=== PATIENT | female | born 1955 | race Two or more races ===

== ENCOUNTER 2024-11-28 11:31 | Inpatient (IN) | payer OTHER ==
[~2024-11-28] VITALS: Ht 170.2 cm; Wt 56.9 kg
--- NOTE | 2024-11-28 11:41 | ED.PDOC ---
History of Present Illness HPI Comments 69 y.o female with PMHx of MS and HTN, presents to the ED via EMS for an evaluation of generalized weakness. Per EMS, spouse of scene reported patient's decrease in food intake due to dysphagia x a couple of days and also stated increased forgetfulness. Patient presents to the ED asymptomatic, is able to answer some yes and no questions but does not recall full past medical history. EMS administrated 500mL NS IV on scene due to a BP of 75/56 and also gave Zofran due to nausea/vomiting which has resolved now. Patient had a BS of 206 prior to arrival. Time Seen by MD: 11:28 Reviewed Notes: Nurses Notes, Nuclear Engineer Notes, Medications, Allergies Allergies: Coded Allergies: NO KNOWN ALLERGIES (Unverified , 11/28/24) Information Source: Emergency Med Personnel Mode of Arrival: EMS Severity: Moderate Timing: Days Duration: Since onset Past Medical History PAST MEDICAL HISTORY: HTN Past Medical History (Other): MS Surgical History: Unknown, Unobtainable, Pt Confused GM VIDEO History: Unknown, Unobtainable, Pt Confused Family History Family History: Unknown, Pt Confused Social History Smoker: Pt Confused Alcohol: Pt Confused Drugs: Pt Confused Lives In: Pt Confused Constitutional: reports: weakness; denies: chills, diaphoresis, fatigue, fever, malaise, sweats, others EENTM: denies: blurred vision, double vision, ear bleeding, ear discharge, ear drainage, ear pain, ear ringing, eye pain, eye redness, hearing loss, mouth pain, mouth swelling, nasal discharge, nose bleeding, nose congestion, nose pain, photophobia, tearing, throat pain, throat swelling, voice changes, others Respiratory: denies: cough, hemoptysis, orthopnea, SOB at rest, shortness of breath, SOB with excertion, stridor, wheezing, others Cardiovascular: denies: chest pain, dizzy spells, diaphoresis, Dyspnea on exertion, edema, irregular heart beat, left arm pain, lightheadedness, palpitations, PND, syncope, others Gastrointestinal: reports: dysphagia Genitourinary: denies: abnormal vagina bleeding, burning, dyspareunia, dysuria, flank pain, frequency, hematuria, incontinence, pain, , vagina discharge, urgency, others Neurological: denies: dizziness, fainting, headache, left sided numbness, left sided weakness, numbness, paresthesia, pre-existing deficit, right sided numbness, right sided weakness, seizure, speech problems, tingling, tremors, weakness, others Musculoskeletal: denies: back pain, gout, joint pain, joint swelling, muscle pain, muscle stiffness, neck pain, others Integumetry: denies: bruises, change in color, change in hair/nails, dryness, laceration, lesions, lumps, rash, wounds, others Allergic/Immunocompromised: denies: Difficulty Healing, Frequent Infections, Hives, Itching, others Hematologic/Lymphatic: denies: anemia, blood clots, easy bleeding, easy bruising, swollen glands, others Endocrine: denies: excessive hunger, excessive sweating, excessive thirst, excessive urination, flushing, intolerance to cold, intolerance to heat, unexplained weight gain, unexplained weight loss, others Psychiatric: denies: anxiety, bipolar disorder, depression, hopeless, panic disorder, schizophrenia, sleepless, suicidal, others Unable to Obtain due to: Other (Patient denies any symptoms but is responding " i do not know" to most questions ) Physical Exam General Appearance: Moderate Distress, Thin HEENT: Pale [place]junt[place]ae (L), Pale Conjuntivae (R), Pharynx Normal, TMs Normal Neck: Full Range of Motion, Non-Tender, Normal, Normal Inspection Respiratory: Chest Non-Tender, Lungs Clear, No Accessory Muscle Use, No Respiratory Distress, Normal Breath Sounds Cardiovascular: No Edema, No JVD, No Murmur, No Gallop, Normal Peripheral Pulses, Regular Rate/Rhythm Breast Exam: Deferred Gastrointestinal: No Organomegaly, Non Tender, No Pulsatile Mass, Normal Bowel Sounds, Soft Genitalia: Deferred Pelvic: Deferred Rectal: Deferred Extremities: No calf tenderness, Normal capillary refill, Normal inspection, Normal range of motion, Non-tender, No pedal edema Musculoskeletal : Apperance: Normal Neurologic: practice manager II-XII nml as Tested, Motor Weakness, No Sensory Deficits, Other (Flat affect) Cerebellar Function: Unable to Test Reflexes: Normal Skin: Dry, Normal Color, Warm Lymphatic: No Adenopathy Was a procedure done? Was a procedure done?: No EKG EKG : Pulse Rate (adult): 83 [place]: RAD Cardiac Rhythm: NSR Differential Dx Considerations may include: Dehydration, Failure to thrive X-Ray, Labs, Meds, VS Vital Signs Date Time Temp Pulse Resp B/P (MAP) Pulse Ox O2 Delivery O2 Flow Rate FiO2 11/28/24 12:00 84 11/28/24 11:57 81 16 99 Nasal Cannula* 4 36 11/28/24 11:57 97.8 81 16 99/62 (74) 99 97.8 11/28/24 11:41 83 11/28/24 11:37 83 11/28/24 11:32 97.8 108 18 76/39 (51) 98 97.8 Lab Test 11/28/24 12:41 11/28/24 11:51 11/28/24 10:00 Range/Units Urine Color Pending Urine Clarity Pending Urine pH Pending Urine Specific [place] Pending Urine Protein Pending Urine Ketones Pending Urine Blood Pending Urine Nitrite Pending Urine Bilirubin Pending Urine Urobilinogen Pending Urine Leukocyte Esterase Pending Urine RBC Pending Urine Microscopic WBC Pending Urine Squamous Epithelial Cells Pending Urine Bacteria Pending Urine Glucose Pending White Blood Count 20.6 H 4.4-10.8 10^3/uL Red Blood Count 4.40 4.0-5.20 10^6/uL Hemoglobin 13.2 12.2-16.2 g/dL Hematocrit 38.8 36.0-46.0 % Mean Corpuscular Volume 88.3 80.0-100.0 fL Mean Corpuscular Hemoglobin 30.0 28.0-32.0 pg Mean Corpuscular Hemoglobin Concent 34.0 32.0-36.0 g/dL Red Cell Distribution Width 15.2 H 11.8-14.3 % Platelet Count 348 140-450 10^3/uL Mean Platelet Volume 8.5 6.9-10.8 fL Neutrophils (%) (Auto) 93.9 H 37.0-80.0 % Lymphocytes (%) (Auto) 2.1 L 10.0-50.0 % Monocytes (%) (Auto) 3.9 0.0-12.0 % Eosinophils (%) (Auto) 0.0 0.0-7.0 % Basophils (%) (Auto) 0.1 0.0-2.0 % Neutrophils # (Auto) 19.3 H 1.6-8.6 10 ^3/uL Lymphocytes # (Auto) 0.4 0.4-5.4 10 ^3/uL Monocytes # (Auto) 0.8 0-1.3 10 ^3/uL Eosinophils # (Auto) 0 0-0.8 10 ^3/uL Basophils # (Auto) 0 0-0.2 10 ^3/uL Nucleated Red Blood Cells 0.0 % Sodium Level 144 136-145 mmol/L Potassium Level 2.3 *L 3.5-5.1 mmol/L Chloride Level 105 98-107 mmol/L Carbon Dioxide Level 18 L 20-31 mmol/L Anion Gap 21 H 5-15 Blood Urea Nitrogen 102 *H 9-23 mg/dL Creatinine 3.71 H 0.550-1.02 mg/dL Glomerular Filtration Rate Calc 13 >90 mL/min BUN/Creatinine Ratio 27.5 H 10.0-20.0 Serum Glucose 152 H 74-106 mg/dL Calcium Level 9.6 8.7-10.4 mg/dL SARS-CoV-2 Antigen (Rapid) Pending Current Medications Medications (Trade) Dose Ordered Sig/Jenise Route Start Time Stop Time Status Last Admin Potassium Chloride 50 ml @ 25 mls/hr ONCE ONCE IV 11/28/24 13:00 11/28/24 14:59 11/28/24 12:57 Sodium Chloride 100 ml @ 50 mls/hr Q2H ONCE IV 11/28/24 13:00 11/28/24 14:59 11/28/24 13:02 Whenever chest x-ray is negative The patient's CBC shows an elevated white blood cell count of 20.6 The chemistry panel shows a BUN of 102 and a creatinine of 3.71 The patient was potassium is 2.3 The patient was unable to take a lot of fluids at this time The patient's CO2 level is 18 and the anion gap is elevated at 21 The patient is admitted at this time We will continue giving the patient normal saline for the dehydration We did order a Ellison catheter The CBC is pending Images Reviewed?: Images reviewed and evaluated by me Time of 1ST Reevaluation: 11:35 Reevaluation 1ST: Unchanged Patient Education/Counseling: Other Family Education/Counseling: Diagnosis, Treatment, Prognosis Departure 1 Departure Time of Disposition: 13:21 Impression: Primary Impression: Generalized weakness Additional Impressions: Dehydration Hypokalemia Uremia Increased anion gap metabolic acidosis Disposition: ADMITTED INPATIENT Admit to: Tele Condition: Fair Critical Care Note Critical Care Time?: Yes (45 min-critical care time only) Stability Stability form required: Yes Unstable for transfer: Telemetry monitoring (Telemetry monitoring required), ED Physician Assesment (Clinical assesment) I personally scribed for MILLIE HEREDIA MD ([email or web address]) on 11/28/24 at 11:41. Electronically submitted by Lillian Negrete ([facility]). MILLIE HEREDIA MD Nov 28, 2024 11:41
[2024-11-28 11:57] VITALS: PULSE 81; RESP 16; O2SAT 99
[2024-11-28 12:07] LABS: Basophils # (auto) 0 10 ^3/uL (0-0.2); Basophils % (auto) 0.1 % (0.0-2.0); Eosinophils # (auto) 0 10 ^3/uL (0-0.8); Hematocrit 38.8 % (36.0-46.0); Hemoglobin 13.2 g/dL (12.2-16.2); Lymphocytes # (auto) 0.4 10 ^3/uL (0.4-5.4); Lymphocytes % (auto) 2.1 % (10.0-50.0); Mean Corpuscular Volume 88.3 fL (80.0-100.0); Monocytes # (auto) 0.8 10 ^3/uL (0-1.3); Monocytes % (auto) 3.9 % (0.0-12.0); Neutrophils # (auto) 19.3 10 ^3/uL (1.6-8.6); Neutrophils % (auto) 93.9 % (37.0-80.0); Platelet Count (auto) 348 10^3/uL (140-450); Red Cell Distribution Width 15.2 % (11.8-14.3); White Blood Cell 20.6 10^3/uL (4.4-10.8)
[2024-11-28 12:16] LABS: Chloride 105 mmol/L (98-107); Sodium 144 mmol/L (136-145)
[2024-11-28 12:17] LABS: Anion Gap 21 (5-15); Calcium 9.6 mg/dL (8.7-10.4)
[2024-11-28 12:19] LABS: Carbon Dioxide 18 mmol/L (20-31)
[2024-11-28 12:20] LABS: Potassium 2.3 mmol/L (3.5-5.1)
[2024-11-28 12:22] LABS: BUN/Creatinine Ratio 27.5 (10.0-20.0); Glucose 152 mg/dL (74-106)
[2024-11-28 12:23] LABS: Blood Urea Nitrogen 102 mg/dL (9-23)
[2024-11-28] MEDS ORDERED: POTASSIUM CHL 20MEQ/100ML 100 ML IV ONE (12:30)
--- NOTE | 2024-11-28 12:40 | DVH ---
XY CHEST PORTABLE, HISTORY: cough COMPARISON: None None TECHNICAL DATA: 1 view of the chest was obtained. FINDINGS: Lines and tubes: None Cardiomediastinal silhouette: normal Pulmonary vasculature: normal Lung expansion: normal Lung airspace: normal Lung interstitium: normal Pleura: normal Pneumothorax: no Bones: Unremarkable Other: no IMPRESSION: No acute intrathoracic abnormality.
[2024-11-28 12:49] LABS: Urine Bacteria None Seen /hpf (None Seen)
[2024-11-28] MEDS: POTASSIUM CHL 20MEQ/50ML 50 ML IV ONE (12:57)
[2024-11-28] MEDS: SODIUM CHL 0.9% 100 ML IV ONE (13:02)
[2024-11-28 13:22] LABS: COVID19 ANTIGEN SOFIA FIA NEGATIVE (NEGATIVE)
[2024-11-28 13:22] LABS: Urine Blood 2+ /uL (Negative); Urine Clarity Clear (Clear); Urine Color Yellow (Yellow); Urine Protein, UAD 1+ (Negative); Urine Specific Gravity 1.017 (1.001-1.035); Urine Squamous Epithelial Cell FEW /hpf (<5); Urine Urobilinogen Normal (Negative); Urine WBC 23 /HPF (0-5); Urine pH 5.5 (5.0-9.0)
[2024-11-28] MEDS ORDERED: IPRATROPIUM BROM 0.5 MG/2.5ML INH SOL NEB PRN (20:45)
[2024-11-28 21:31] LABS: Base Excess -5.6 mmol/L (-2.0-3.0)
[2024-11-28 21:52] LABS: Basophils # (auto) 0 10 ^3/uL (0-0.2); Basophils % (auto) 0.2 % (0.0-2.0); Eosinophils # (auto) 0 10 ^3/uL (0-0.8); Hematocrit 39.2 % (36.0-46.0); Hemoglobin 13.1 g/dL (12.2-16.2); Lymphocytes # (auto) 0.5 10 ^3/uL (0.4-5.4); Lymphocytes % (auto) 2.6 % (10.0-50.0); Mean Corpuscular Hemoglobin 29.6 pg (28.0-32.0); Mean Corpuscular Hgb Conc. 33.4 g/dL (32.0-36.0); Mean Corpuscular Volume 88.6 fL (80.0-100.0); Monocytes # (auto) 0.9 10 ^3/uL (0-1.3); Monocytes % (auto) 5.4 % (0.0-12.0); Neutrophils % (auto) 91.8 % (37.0-80.0); Platelet Count (auto) 311 10^3/uL (140-450); Red Blood Cells 4.42 10^6/uL (4.0-5.20); Red Cell Distribution Width 15.3 % (11.8-14.3); White Blood Cell 17.4 10^3/uL (4.4-10.8)
[2024-11-28 22:00] VITALS: BP 99/62; PULSE 81; RESP 20; TEMP 97.8; O2SAT 99
[2024-11-28 22:00] LABS: Albumin 4.4 g/dL (3.2-4.8); Alkaline Phosphatase 109 U/L (46-116); Anion Gap 18 (5-15); Aspartate Aminotransferase 31 U/L (13-40); BUN/Creatinine Ratio 28.4 (10.0-20.0); Calcium 9.7 mg/dL (8.7-10.4); Total Protein 7.7 g/dL (5.7-8.2)
[2024-11-28 22:08] LABS: Carbon Dioxide 19 mmol/L (20-31); Chloride 109 mmol/L (98-107); Glucose 139 mg/dL (74-106); Sodium 146 mmol/L (136-145)
[2024-11-28 22:09] LABS: Alanine Aminotransferase 9 U/L (7-40); Bilirubin, Total 0.2 mg/dL (0.2-1.0)
[2024-11-28 22:11] LABS: Potassium 2.4 mmol/L (3.5-5.1)
[2024-11-28 22:12] VITALS: O2SAT 99
[2024-11-28 22:12] LABS: Blood Urea Nitrogen 90 mg/dL (9-23)
--- NOTE | 2024-11-28 22:15 | DVH ---
EXAM: CT HEAD WITHOUT CONTRAST INDICATION: slurring of speach, rule out stroke TECHNIQUE: CT of the head without intravenous contrast. Radiation Dose Information: CT Dose: CTDI volume is 53.84 mGy. Dose-length product is 1904.99 mGy*cm The dose indicators for CT are the volume Computed Tomography (CT) Dose Index (CTDIvol) and the Dose Length Product (DLP), and are measured in units of mGy and mGy-cm, respectively. These indicators are not patient dose, but values generated from the CT scanner acquisition factors. The report includes radiation exposure data for exposures received during this examination. COMPARISON: None FINDINGS: There is no evidence of acute intracranial hemorrhage, extra-axial collection, mass effect, midline s hift, herniation or hydrocephalus. Idiopathic bilateral basal ganglion calcifications. The ventricles, sulci and cisterns are age appropriate. The rae-white differentiation is intact. Patchy periventricular and subcortical white matter hypoattenuation is nonspecific but may be related to small vessel ischemic disease. The visualized paranasal sinuses and mastoid air cells are clear. The surrounding soft tissues and osseous structures are unremarkable. IMPRESSION: 1. No acute intracranial hemorrhage 2. No CT findings of territorial ischemia. CRITICAL FINDINGS Critical Result: Stroke Alert NEGATIVE Findings discussed with Gloria STEVENS , at 11/28/2024 10:06 PM, and acknowledged receipt and understanding of the findings. ..
[2024-11-28] MEDS: PIPERACILLIN-TAZOB 3.375GM 100 ML IV ONE (22:55)
[2024-11-28] MEDS: SODIUM CHLORIDE 0.9% 1,000 ML IV ONE (22:56)
[2024-11-28 23:11] VITALS: BP 102/60; PULSE 68; RESP 20; TEMP 97.5; O2SAT 93
[2024-11-28] MEDS ORDERED: POTASSIUM CHL 20MEQ/100ML 100 ML IV SCH (23:30)
[2024-11-29] VITALS (10 sets, daily range): BP systolic 92–108; BP diastolic 52–77; PULSE 73–144; RESP 17–18; TEMP 97.3–97.8; O2SAT 90–99
[2024-11-29] MEDS: POTASSIUM CHL 20MEQ/50ML 50 ML IV SCH ×3 (00:24→21:11)
--- NOTE | 2024-11-29 01:59 | DVHHPRES ---
History of Present Illness Resident Creating Document: NATHANIEL EL RESIDENT History of Present Illness 69-year-old female with past medical history of hypertension, multiple sclerosis past surgical history of surgery for hip fracture presented with complaints of generalized weakness associated with dysphagia, forgetfulness and decreased food intake for last two weeks. Patient is currently confused alert and oriented x1, history was taken from at bedside who is next of kin. As per , patient was admitted for surgery for a fracture almost 1-2 months ago. One month ago patient patient was started having difficulty walking, which the attributed both to a fracture and motor weakness because of multiple sclerosis. also mentioned patient had slurring of speech, that has been worsening for last one month and patient is on November 24 take any food, was able to take initially liquid food, with stroke but later started choking. Was spent mentioned patient had altered level of consciousness and dry mouth for last two weeks. He also mentioned patient had issues with passing urine Patient's neurologist is Dr. Romero, but patient is not following for a very long time and not taking any medication for multiple sclerosis Past medical history Hypertension Multiple sclerosis Surgical history Surgery for hip fracture Medication history Patient does not take any medication Social history Patient lives with the , denies smoking, alcohol, marijuana or any other recreational drug intake Allergic history No known allergies Review of Systems Review of Systems Could not be done as patient is confused Allergies: Coded Allergies: NO KNOWN ALLERGIES (Unverified , 11/28/24) Medications Current Medications Medications Dose Ordered Sig/Jenise Route Start Time Stop Time Status Last Admin Dose Admin Ipratropium [place] 0.5 mg Q4HPRN PRN NEB 11/28/24 20:45 Potassium Chloride 50 ml @ 25 mls/hr Q2H IV 11/28/24 23:45 11/29/24 03:44 11/29/24 00:24 25 MLS/HR Exam Vital Signs Vital Signs Date Time Temp Pulse Resp B/P (MAP) Pulse Ox O2 Delivery O2 Flow Rate FiO2 11/28/24 23:11 97.5 68 20 102/60 (74) 93 97.5 11/28/24 22:12 Nasal Cannula* 4 36 Exam Examination Does not follow commands and is confused General Appearance: Confused HEENT: Dry mouth and tongue Respiratory: Clear to auscultation, Normal air movement Cardiovascular: Regular rate, Normal S1, Normal S2 Abdominal: Normal bowel sounds Extremities: No cyanosis, No edema, Normal pulses, No tenderness/swelling Skin: No rashes, No breakdown Neuro: motor deficit on both legs Labs/Xrays Labs Test 11/28/24 21:31 11/28/24 21:22 11/28/24 12:41 11/28/24 10:00 Range/Units White Blood Count 17.4 H 4.4-10.8 10^3/uL Red Blood Count 4.42 4.0-5.20 10^6/uL Hemoglobin 13.1 12.2-16.2 g/dL Hematocrit 39.2 36.0-46.0 % Mean Corpuscular Volume 88.6 80.0-100.0 fL Mean Corpuscular Hemoglobin 29.6 28.0-32.0 pg Mean Corpuscular Hemoglobin Concent 33.4 32.0-36.0 g/dL Red Cell Distribution Width 15.3 H 11.8-14.3 % Platelet Count 311 140-450 10^3/uL Mean Platelet Volume 8.6 6.9-10.8 fL Neutrophils (%) (Auto) 91.8 H 37.0-80.0 % Lymphocytes (%) (Auto) 2.6 L 10.0-50.0 % Monocytes (%) (Auto) 5.4 0.0-12.0 % Eosinophils (%) (Auto) 0.0 0.0-7.0 % Basophils (%) (Auto) 0.2 0.0-2.0 % Neutrophils # (Auto) 16.0 H 1.6-8.6 10 ^3/uL Lymphocytes # (Auto) 0.5 0.4-5.4 10 ^3/uL Monocytes # (Auto) 0.9 0-1.3 10 ^3/uL Eosinophils # (Auto) 0 0-0.8 10 ^3/uL Basophils # (Auto) 0 0-0.2 10 ^3/uL Nucleated Red Blood Cells 0.0 % Sodium Level 146 H 136-145 mmol/L Potassium Level 2.4 *L 3.5-5.1 mmol/L Chloride Level 109 H 98-107 mmol/L Carbon Dioxide Level 19 L 20-31 mmol/L Anion Gap 18 H 5-15 Blood Urea Nitrogen 90 #*H 9-23 mg/dL Creatinine 3.17 H 0.550-1.02 mg/dL Glomerular Filtration Rate Calc 15 >90 mL/min BUN/Creatinine Ratio 28.4 H 10.0-20.0 Serum Glucose 139 H 74-106 mg/dL Lactic Acid Level 1.3 0.4-2.0 mmol/L Calcium Level 9.7 8.7-10.4 mg/dL Magnesium Level 3.1 H 1.6-2.6 mg/dL Total Bilirubin 0.2 0.2-1.0 mg/dL Aspartate Amino Transferase (AST) 31 13-40 U/L Alanine Aminotransferase (ALT) 9 7-40 U/L Alkaline Phosphatase 109 46-116 U/L Total Protein 7.7 5.7-8.2 g/dL Albumin 4.4 3.2-4.8 g/dL Thyroid Stimulating Hormone (TSH) 0.33 L 0.55-4.78 uIU/mL Blood Gas Specimen Type Arterial Blood Gas Sample Site Left radial Blood Gas Patient Temperature 37.0 Arterial Blood Date Drawn [id number] Arterial Blood pH 7.360 7.350-7.450 Arterial Blood Partial Pressure CO2 34.4 32.0-45.0 mmHg Arterial Blood Partial Pressure O2 94.2 83.0-108.0 mmHg Arterial Blood HCO3 19.0 L 21.0-28.0 mmol/L Arterial Blood Oxygen Saturation 96.8 94.0-98.0 % Arterial Blood Base Excess -5.6 L -2.0-3.0 mmol/L Arterial Blood Oxyhemoglobin 95.4 94.0-98.0 % Arterial Blood Carboxyhemoglobin 0.5 0.5-1.5 % Arterial Blood Methemoglobin 0.9 0.0-1.5 % [place] Test Yes Blood Gas Total Hemoglobin 13.40 12.0-16.0 g/dL Blood Gas Liter Flow 4.00 Blood Gas Modality Nasal cannula FiO2 % 36.0 Urine Color Yellow Yellow Urine Clarity Clear Clear Urine pH 5.5 5.0-9.0 Urine Specific [place] 1.017 1.001-1.035 Urine Protein 1+ H Negative Urine Ketones Negative Negative Urine Blood 2+ H Negative /uL Urine Nitrite Negative Negative Urine Bilirubin Negative Negative Urine Urobilinogen Normal Negative mg/dL Urine Leukocyte Esterase 2+ Negative /uL Urine RBC 1 0 - 4 /hpf Urine Microscopic WBC 23 H 0-5 /HPF Urine Squamous Epithelial Cells Few <5 /hpf Urine Bacteria None seen None Seen /hpf Urine Glucose Normal Normal mg/dL SARS-CoV-2 Antigen (Rapid) Negative NEGATIVE Assessment/Plan Assessment/Plan Assessment and plan # ALOC likely due to uremic encephalopathy/sepsis/UTI # dysarthria due to MS, rule out stroke head CT Vitamin B12, folate, TSH # SEPSIS LIKELY DUE TO UTI # urinary tract infection -IV FLUIDS IV ANTIBIOTICS (starting on IV Zosyn and IV doxycycline as patient was recently admitted, risk factors for MRSA and Pseudomonas URINE CULTURE LACTIC ACID BLOOD CULTURE AND CHEST X-RAY #HYPOTENSION, likely due to sepsis, resolved -IV fluids # ACUTE HYPOXIC RESPIRATORY FAILURE LIKELY DUE TO SEPSIS, later was on room air -ON 4L -CXRP-EMPHYSEMATOUS CHANGES -DUONEBS PRN #HYPOKALEMIA -replace with IV potassium -repeat BMP -magnesium levels #JJ over CKD, renal due to hypotension/sepsis -IV fluids -nephrology consult #Dysphagia/Dysarthria likely due to MS -head CT to rule out stroke -swallow evaluation, NPO till then #Multiple Sclerosis -pt is not on any home meds -consider neurology consult if concern for acute flare #hypertension -currently in shock at bedside, explained in details about patient GOALS of care discussed with the ,for >21 min, who is the next of kin, as per , patient would have wanted Full DNR, pt is currently confused, not having decision making capacity Nathaniel El PGY2 internal Medicine Case discussion with dr Ronald Locke discussed with: Spouse, Other My Orders Orders - NATHANIEL EL RESIDENT Procedure Category Date Status Time Admit ADMIT 11/28/24 Transmitted 20:45 Oxygen By Nasal RT 11/28/24 Transmitted Cannula 20:45 Stat Ekg For Chest MARLENY 11/28/24 In Process Pain 20:45 Notify Md Of Changes MARLENY 11/28/24 In Process From Base 20:45 Chemical Laboratory Technician For MARLENY 11/28/24 In Process 24 Hours 20:45 Emergency Dysrhythmia MARLENY 11/28/24 In Process Protocol 20:45 Rhythm Strips Once MARLENY 11/28/24 In Process Every Shift 20:[address] 11/28/24 Resulted 20:45 Urine Bacterial JAMES 11/28/24 Logged Culture 20:45 Blood Culture JAMES 11/28/24 In Process 20:45 Npo (Nothing By DIET 11/29/24 Transmitted Mouth) Diet Breakfast Ipratropium [place] PHA 11/28/24 In Process (Atrovent Medneb) 20:45 Abg W/ Co-Ox RT 11/28/24 Logged 20:45 Vitamin B12 LAB 11/28/24 In Process 20:45 Basic Metabolic Panel LAB 11/29/24 Logged 04:00 Potassium Chl PHA 11/28/24 In Process 20meq/50ml (Potassium 23:45 Date of Service: Nov 29, 2024 Billing Provider: NICOLAS MARTE MD Common Visit Codes: [id number] INP/OBS CARE (HIGH) NATHANIEL EL RESIDENT Nov 29, 2024 01:59 NICOLAS MARTE MD Dec 06, 2024 22:04
[2024-11-29] MEDS: DOXYCYCLINE 100MG/100ML 100 ML IV ONE (03:15)
[2024-11-29 06:29] LABS: Basophils # (auto) 0 10 ^3/uL (0-0.2); Basophils % (auto) 0.2 % (0.0-2.0); Eosinophils # (auto) 0 10 ^3/uL (0-0.8); Hematocrit 36.4 % (36.0-46.0); Hemoglobin 12.1 g/dL (12.2-16.2); Lymphocytes # (auto) 0.6 10 ^3/uL (0.4-5.4); Lymphocytes % (auto) 3.3 % (10.0-50.0); Mean Corpuscular Hemoglobin 29.8 pg (28.0-32.0); Mean Corpuscular Hgb Conc. 33.4 g/dL (32.0-36.0); Mean Corpuscular Volume 89.3 fL (80.0-100.0); Monocytes # (auto) 1.1 10 ^3/uL (0-1.3); Monocytes % (auto) 6.8 % (0.0-12.0); Neutrophils % (auto) 89.7 % (37.0-80.0); Platelet Count (auto) 302 10^3/uL (140-450); Red Blood Cells 4.08 10^6/uL (4.0-5.20); Red Cell Distribution Width 15.2 % (11.8-14.3); White Blood Cell 16.7 10^3/uL (4.4-10.8)
[2024-11-29 07:02] LABS: Anion Gap 17 (5-15)
[2024-11-29 07:03] LABS: Calcium 9.5 mg/dL (8.7-10.4)
[2024-11-29 07:07] LABS: Carbon Dioxide 20 mmol/L (20-31); Chloride 113 mmol/L (98-107); Potassium 2.9 mmol/L (3.5-5.1); Sodium 150 mmol/L (136-145)
[2024-11-29 07:08] LABS: BUN/Creatinine Ratio 36.6 (10.0-20.0)
[2024-11-29 07:18] LABS: Glucose 139 mg/dL (74-106)
[2024-11-29 07:20] LABS: Blood Urea Nitrogen 102 mg/dL (9-23)
[2024-11-29] MEDS: SODIUM CHL 0.9% 100 ML IV SCH ×2 (08:00→21:29)
--- NOTE | 2024-11-29 09:05 | DVHINCON2 ---
Date of service: Nov 29, [address] El Reason for Consultation Multiple sclerosis History of Present Illness Ms. Hilliard is a left-handed female with a history of hypertension, depression, stroke. She was admitted to the [facility] on 11/28/2024 with a chief company of altered mental status. At this time, she was awake, oriented to person place only, very pleasant, but is not able to provide history. The following information is obtained from her , I saw her previously in my office In the hospital, the patient was found to have dehydration/hypernatremia, acute kidney failure, urinary tract infection, metabolic acidosis, leukocytosis Around [id number], she developed some problems in the left side of her body, maybe weakness, she was seen in the [facility] and said to have stroke at first, later she was said to have MS after 2 MRI head wwo, and LP x2, she has a good recovery from the stroke. The patient was supposed to but does not not take Tecfidera [phone], Urinalysis, 11/28/2024: WBC: 23, urine leukocyte esterase: 2+ CBC, 11/28/2024: Compensated metabolic acidosis WBC/HB/PLT/MCV, 12/08/2024: 20.6/13.2/348/88.3. 11/29/2024: 16.7/12.1/302/89.3 Sodium, 11/28/2024: 144, 146, 11/29/2024: 150 Potassium, 11/28/2024: 2.3, 11/29/2024: 2.9 Anion gap, 11/29/2024: 17 BUN/CR, 11/28/2024: 102/3.71, 11/29/2024: 102/2.79 Glucose, 11/28/2024: 152 Liver function tests, 11/28/2024: Normal TSH, 11/28/2024: 0.33 Chest x-ray, 11/28/2024: No acute intrathoracic abnormality CT head, 11/28/2024: 1. No acute intracranial hemorrhage 2. No CT findings of territorial ischemia Past Medical History Hypertension, multiple sclerosis, depression Past Surgical History Appendectomy, tonsillectomy, ectopic , left hip surgery Family History: of family member G8 MOTHER Family History Stroke Social History She was tobacco smoke, but no history of alcohol or recreational substance abuse Allergies: Coded Allergies: NO KNOWN ALLERGIES (Unverified , 11/28/24) Home Meds As above, the other systems are negative Current Medications Current Medications Medications (Trade) Dose Ordered Sig/Jenise Route PRN Reason Start Time Stop Time Status Last Admin Ipratropium [place] (Atrovent Medneb) 0.5 mg Q4HPRN PRN NEB SHORTNESS OF BREATH 11/28/24 20:45 Potassium Chloride 100 ml @ 50 mls/hr Q2H IV 11/28/24 23:30 11/28/24 23:55 DC Potassium Chloride 50 ml @ 25 mls/hr Q2H IV 11/28/24 23:45 11/29/24 03:44 DC 11/29/24 02:16 Doxycycline Hyclate 100 ml @ 50 mls/hr Q12H IV 11/29/24 14:00 Piperacillin Sod/ Tazobactam Sod 100 ml @ 25 mls/hr Q12HR IV 11/29/24 10:00 Enoxaparin Sodium (Lovenox) 30 mg DAILY SC 11/29/24 10:00 Potassium Chloride 50 ml @ 25 mls/hr Q2H IV 11/29/24 08:00 11/29/24 11:59 Sodium Chloride 100 ml @ 50 mls/hr Q2H IV 11/29/24 08:00 11/29/24 11:59 Vital Signs Vital Signs Date Time Temp Pulse Resp B/P (MAP) Pulse Ox O2 Delivery O2 Flow Rate FiO2 11/29/24 05:00 97.8 84 18 103/69 (80) 91 97.8 11/28/24 23:22 Nasal Cannula* 4 36 Physical Exam GENERAL EXAM: General: the patient is well developed and nourished. No acute distress. HEENT: Normocephalic, neck is supple, no carotid bruits. No mass RESPIRATORY: Normal respiratory effort with symmetrical lung expansion. Lungs clear to auscultation. CARDIOVASCULAR: Regular rate and rhythm with no murmurs. S1, S2. ABDOMEN: Soft, nontender, normal bowel sound NEUROLOGICAL: MENTAL STATUS: Awake and alert. Oriented to person, place SPEECH, LANGUAGE, HIGHER CORTICAL FUNCTION: no aphasia, mild dysarthria CRANIAL NERVES: Intact visual ordoñez to confrontation. The optic discs were sharp. Pupils are equal, round and reactive. EOMs full and conjugate. No nystagmus. Facial sensation intact in all three divisions bilaterally. Mandibular strength intact. Facial muscles symmetrical and strength intact. SENSATION: Sensation to touch and pinprick is normal. MOTOR: Normal tone in the upper and lower extremity. Normal muscle bulk. No fasciculations. No abnormal movements or posturing. Muscle strength of the major groups in the left extremities is: Upper: 4/5, lower: 2/5. Muscle strength of the major groups in the right extremities is: Upper: 4-5/5, Lowe: 3/5. REFLEXES: Deep tendon reflexes are symmetrical. No pathological reflexes. CEREBELLAR/COORDINATION: Unremarkable GAIT/STATION: deferred. Labs/Diagnostic Data Labs Test 11/29/24 05:37 11/28/24 21:31 11/28/24 21:22 11/28/24 12:41 Range/Units White Blood Count 16.7 H 4.4-10.8 10^3/uL Red Blood Count 4.08 4.0-5.20 10^6/uL Hemoglobin 12.1 L 12.2-16.2 g/dL Hematocrit 36.4 36.0-46.0 % Mean Corpuscular Volume 89.3 80.0-100.0 fL Mean Corpuscular Hemoglobin 29.8 28.0-32.0 pg Mean Corpuscular Hemoglobin Concent 33.4 32.0-36.0 g/dL Red Cell Distribution Width 15.2 H 11.8-14.3 % Platelet Count 302 140-450 10^3/uL Mean Platelet Volume 8.7 6.9-10.8 fL Neutrophils (%) (Auto) 89.7 H 37.0-80.0 % Lymphocytes (%) (Auto) 3.3 L 10.0-50.0 % Monocytes (%) (Auto) 6.8 0.0-12.0 % Eosinophils (%) (Auto) 0.0 0.0-7.0 % Basophils (%) (Auto) 0.2 0.0-2.0 % Neutrophils # (Auto) 15.0 H 1.6-8.6 10 ^3/uL Lymphocytes # (Auto) 0.6 0.4-5.4 10 ^3/uL Monocytes # (Auto) 1.1 0-1.3 10 ^3/uL Eosinophils # (Auto) 0 0-0.8 10 ^3/uL Basophils # (Auto) 0 0-0.2 10 ^3/uL Nucleated Red Blood Cells 0.0 % Sodium Level 150 H 136-145 mmol/L Potassium Level 2.9 L 3.5-5.1 mmol/L Chloride Level 113 H 98-107 mmol/L Carbon Dioxide Level 20 20-31 mmol/L Anion Gap 17 H 5-15 Blood Urea Nitrogen 102 #*H 9-23 mg/dL Creatinine 2.79 H 0.550-1.02 mg/dL Glomerular Filtration Rate Calc 18 >90 mL/min BUN/Creatinine Ratio 36.6 H 10.0-20.0 Serum Glucose 139 H 74-106 mg/dL Calcium Level 9.5 8.7-10.4 mg/dL Magnesium Level 3.0 H 1.6-2.6 mg/dL Lactic Acid Level 1.3 0.4-2.0 mmol/L Total Bilirubin 0.2 0.2-1.0 mg/dL Aspartate Amino Transferase (AST) 31 13-40 U/L Alanine Aminotransferase (ALT) 9 7-40 U/L Alkaline Phosphatase 109 46-116 U/L Total Protein 7.7 5.7-8.2 g/dL Albumin 4.4 3.2-4.8 g/dL Thyroid Stimulating Hormone (TSH) 0.33 L 0.55-4.78 uIU/mL Blood Gas Specimen Type Arterial Blood Gas Sample Site Left radial Blood Gas Patient Temperature 37.0 Arterial Blood Date Drawn [id number] Arterial Blood pH 7.360 7.350-7.450 Arterial Blood Partial Pressure CO2 34.4 32.0-45.0 mmHg Arterial Blood Partial Pressure O2 94.2 83.0-108.0 mmHg Arterial Blood HCO3 19.0 L 21.0-28.0 mmol/L Arterial Blood Oxygen Saturation 96.8 94.0-98.0 % Arterial Blood Base Excess -5.6 L -2.0-3.0 mmol/L Arterial Blood Oxyhemoglobin 95.4 94.0-98.0 % Arterial Blood Carboxyhemoglobin 0.5 0.5-1.5 % Arterial Blood Methemoglobin 0.9 0.0-1.5 % Tyrone Test Yes Blood Gas Total Hemoglobin 13.40 12.0-16.0 g/dL Blood Gas Liter Flow 4.00 Blood Gas Modality Nasal cannula FiO2 % 36.0 Urine Color Yellow Yellow Urine Clarity Clear Clear Urine pH 5.5 5.0-9.0 Urine Specific [place] 1.017 1.001-1.035 Urine Protein 1+ H Negative Urine Ketones Negative Negative Urine Blood 2+ H Negative /uL Urine Nitrite Negative Negative Urine Bilirubin Negative Negative Urine Urobilinogen Normal Negative mg/dL Urine Leukocyte Esterase 2+ Negative /uL Urine RBC 1 0 - 4 /hpf Urine Microscopic WBC 23 H 0-5 /HPF Urine Squamous Epithelial Cells Few <5 /hpf Urine Bacteria None seen None Seen /hpf Urine Glucose Normal Normal mg/dL Test 11/28/24 10:00 Range/Units SARS-CoV-2 Antigen (Rapid) Negative NEGATIVE Assessment Altered mental status/metabolic encephalopathy, general weakness secondary to: Urinary tract infection Leukocytosis/? Sepsis Metabolic acidosis Hypernatremia/activity dehydration/acute kidney failure Multiple sclerosis with atypical feature Plan/Recommendation Monitoring Supportive treatment Telemetry Urine culture Blood culture EEG Follow-up MR brain scan IV antibiotics DVT prophylaxis/Lovenoxee Up to chair Physical therapy Nephrology consultation Follow up with her doctors on discharge ALLISON Follow up with me on discharge [facility] Plan discussed with: Spouse, Other JORGE GONZALEZ MD Nov 29, 2024 09:05
[2024-11-29] MEDS: PIPERACILLIN-TAZOB 3.375GM 100 ML IV SCH (09:09)
[2024-11-29] MEDS: ENOXAPARIN SOD 30 MG/0.3 ML SYRINGE SC SCH (09:12)
[2024-11-29] MEDS ORDERED: SOD CHL 0.45% WITH 20MEQ KCL 1,000 ML IV SCH (09:30)
[2024-11-29 10:22] LABS: Magnesium 3.1 mg/dL (1.6-2.6)
[2024-11-29 10:36] LABS: Phosphorus 5.5 mg/dL (2.4-5.1)
[2024-11-29] MEDS: SODIUM CHLORIDE 0.9% 1,000 ML IV ONE (10:45)
--- NOTE | 2024-11-29 11:28 | DVH ---
INDICATION: dee TECHNIQUE: Multiple real-time sonographic images of the kidneys and bladder were obtained. COMPARISON: None FINDINGS: The right kidney measures 9 cm in length, which is normal in size. T Right pelvic fullness. The left kidney measures 7 cm in length, which is normal in size. No hydronephrosis. 2 Cm left reta l cyst. Increased increased bilateral renal echogenicity. No large intraluminal masses are seen in the bladder. IMPRESSION: Right pelvic fullness. Bilateral medical renal disease
[2024-11-29] MEDS ORDERED: LACTATED RINGER'S 1,000 ML IV ONE (11:30)
--- NOTE | 2024-11-29 12:07 | ECG ---
[facility] Test Date: 2024-11-28 Test Time: 11:37:23 Pat Name: DAVID MARIA Department: ED Room: 0216T B Gender: F Office Asst: amanda : 1955 Requested By: MILLIE HEREDIA Order Number: [id number] Reading MD: Jer Thorne Measurements Intervals [place] Rate: 83 P: 99 NM: 146 QRS: 157 QRSD: 85 T: 73 QT: 488 QTc: 574 Interpretive Statements Sinus rhythm Biatrial enlargement Low voltage with right axis deviation Nonspecific T abnormalities, lateral leads Prolonged QT interval Artifact in lead(s) I,III,aVR,aVL,aVF,V1 Electronically Signed On 12-01-2024 14:19:06 PDT by Jer Thorne Please click the below link to view image of tracing.
[2024-11-29 12:29] LABS: INR 1.15 (0.9-1.15); Partial Thromboplastin Time 27.3 SEC (24.5-34.5)
[2024-11-29 13:57] LABS: Protein, Urine 72.5 mg/dL (1-14)
[2024-11-29 13:58] LABS: Amphetamine Screen, Urine Neg (NEGATIVE); Barbiturate Scree,Urine Neg (NEGATIVE); Benzodiazephine Screen, Urine Neg (NEGATIVE); Cocaine Screen, Urine Neg (NEGATIVE); Opiate Scree,Urine Neg (NEGATIVE)
[2024-11-29 13:59] LABS: Cannabinoid Screen, Urine Neg (NEGATIVE); Creatinine, Urine 34.06 mg/dL (30.0-125.0); Phencyclidine Screen, Urine Neg (NEGATIVE); Urine Protein/Creatinine Ratio 2.13
--- NOTE | 2024-11-29 14:05 | DVH ---
PROCEDURE: BRAIN HEAD WO CONTRAST INDICATION: multiple sclerosis EXAM DATE: 11/29/2024 12:56 PM COMPARISON: None TECHNIQUE: MRI of the brain without intravenous contrast. Limited, incomplete exam. Patient not coop erative. FINDINGS: Limited by motion. Only axial T2 and FLAIR sequences as well as sagittal T1 sequence was o btained. Diffusion-weighted imaging was also obtained. Diffusion weighted images of the brain demonstrate no evidence of acute infarction. There is no evidence of acute intracranial hemorrhage, extra-axial collection, mass effect, midline s hift, herniation or hydrocephalus. Mild cerebral atrophy. Moderate periventricular and deep white matter signal abnormality. The major vascular flow voids are present. The visualized paranasal sinuses and mastoid air cells are clear. The surrounding soft tissues and o sseous structures are unremarkable. IMPRESSION: 1. Limited, incomplete exam. Patient was noncooperative. Significant motion artifact. Mild cerebral atrophy. Moderate white matter disease consistent with given history of multiple sclerosis. Consider follow-up exam when patient is able to cooperate. HS:Y
[2024-11-29 14:23] LABS: Anion Gap 17 (5-15)
[2024-11-29 14:24] LABS: Calcium 9.2 mg/dL (8.7-10.4)
[2024-11-29] MEDS: DOXYCYCLINE 100MG/100ML 100 ML IV SCH (14:26)
[2024-11-29 14:28] LABS: Carbon Dioxide 19 mmol/L (20-31); Chloride 119 mmol/L (98-107); Potassium 2.7 mmol/L (3.5-5.1); Sodium 155 mmol/L (136-145)
[2024-11-29 14:29] LABS: BUN/Creatinine Ratio 36.8 (10.0-20.0); Glucose 126 mg/dL (74-106)
[2024-11-29 14:30] LABS: Blood Urea Nitrogen 88 mg/dL (9-23)
[2024-11-29] MEDS: AMPICILLIN & SULBACTAM SODIUM 3 GM in SODIUM CHL 0.9% 100 ML IV SCH (14:38)
[2024-11-29] MEDS: D5W/SOD CHL 0.45% 1,000 ML IV ONE (14:45)
--- NOTE | 2024-11-29 14:51 | DVHHPRES ---
History of Present Illness Resident Creating Document: VINAYAK MILLARD RESDIENT History of Present Illness This is a 69-year-old female with past medical history of hypertension, multiple sclerosis, depression and stroke brought to the hospital due to altered mental status. Per patient's she has been altered since 1 month which has progressively worsened, and has been bed-bound since 3 weeks. He also reports that her oral intake has decreased, has been more forgetfulness, lost around 15 lb within last month, urinary incontinence and vomiting. She also a history of ground level fall 5 years back leading to left femur fracture (has put pain) an also had a ground level fall 1 month back. He denies a fever or any recent sick contact. PMHx: hypertension, multiple sclerosis, depression and stroke PSHx: Left hip surgery 5 years back Family history: Noncontributory Social history: Lives with the at home, since 3 weeks has been bed-bound, previously was using walker for mobility Home medication: She has poor adherence to the medicine, stopped taking MS medicine 3 years back, oxybutynin (4 urinary incontinence), alendronate, rosuvastatin, venlafaxine, gabapentin and lisinopril Allergic history: No known allergy Review of Systems Review of Systems Due to altered mental status, patient can not provide history, history taken from the patient's . Allergies: Coded Allergies: NO KNOWN ALLERGIES (Unverified , 11/28/24) Medications Current Medications Medications Dose Ordered Sig/Jenise Route Start Time Stop Time Status Last Admin Dose Admin Ipratropium [place] 0.5 mg Q4HPRN PRN NEB 11/28/24 20:45 Doxycycline Hyclate 100 ml @ 50 mls/hr Q12H IV 11/29/24 14:00 Enoxaparin Sodium 30 mg DAILY SC 11/29/24 10:00 11/29/24 09:12 30 MG Ampicillin Sodium/ Sulbactam Sodium 3 gm/Sodium Chloride 100 ml @ 100 mls/hr DAILY@1130 IV 11/29/24 11:30 Exam Vital Signs Vital Signs Date Time Temp Pulse Resp B/P (MAP) Pulse Ox O2 Delivery O2 Flow Rate FiO2 11/29/24 12:34 97.4 144 18 108/61 (77) 97 97.4 11/29/24 08:00 Room Air* 4 N/A Nasal Cannula* Exam General Appearance: Alert, Oriented to person, disoriented to time and place, cachectic HEENT: Atraumatic, PERRLA, EOMI, Mucous membrane moist/pink Respiratory: Clear to auscultation, Normal air movement Cardiovascular: Regular rate, Normal S1, Normal S2, No murmurs, no chest wall tenderness Abdominal: Normal bowel sounds, Soft, No tenderness, No hepatospenomegaly, No masses Extremities: 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, upon touch during physical examination patient reacts Skin: Scaly rashes on bilateral lower limb Labs/Xrays Labs Test 11/29/24 12:45 11/29/24 10:27 11/29/24 05:37 11/28/24 21:31 Range/Units Urine Creatinine 34.06 30.0-125.0 mg/dL Urine Protein/Creatinine Ratio 2.13 Urine Sodium 54 40-220 mmol/L Urine Total Protein 72.5 H 1-14 mg/dL Urine Opiates Screen Neg NEGATIVE Urine Fentanyl Screen Neg NEGATIVE Urine Barbiturates Screen Neg NEGATIVE Urine Phencyclidine Screen Neg NEGATIVE Urine Amphetamines Screen Neg NEGATIVE Urine Benzodiazepines Screen Neg NEGATIVE Urine Cocaine Screen Neg NEGATIVE Urine Cannabinoids Screen Neg NEGATIVE Prothrombin Time 12.0 H 9.3-11.8 sec Prothrombin Time INR 1.15 0.9-1.15 Activated Partial Thromboplast Time 27.3 24.5-34.5 SEC Vitamin D 25-Hydroxy 29.9 L 30.0-100 ng/mL White Blood Count 16.7 H 4.4-10.8 10^3/uL Red Blood Count 4.08 4.0-5.20 10^6/uL Hemoglobin 12.1 L 12.2-16.2 g/dL Hematocrit 36.4 36.0-46.0 % Mean Corpuscular Volume 89.3 80.0-100.0 fL Mean Corpuscular Hemoglobin 29.8 28.0-32.0 pg Mean Corpuscular Hemoglobin Concent 33.4 32.0-36.0 g/dL Red Cell Distribution Width 15.2 H 11.8-14.3 % Platelet Count 302 140-450 10^3/uL Mean Platelet Volume 8.7 6.9-10.8 fL Neutrophils (%) (Auto) 89.7 H 37.0-80.0 % Lymphocytes (%) (Auto) 3.3 L 10.0-50.0 % Monocytes (%) (Auto) 6.8 0.0-12.0 % Eosinophils (%) (Auto) 0.0 0.0-7.0 % Basophils (%) (Auto) 0.2 0.0-2.0 % Neutrophils # (Auto) 15.0 H 1.6-8.6 10 ^3/uL Lymphocytes # (Auto) 0.6 0.4-5.4 10 ^3/uL Monocytes # (Auto) 1.1 0-1.3 10 ^3/uL Eosinophils # (Auto) 0 0-0.8 10 ^3/uL Basophils # (Auto) 0 0-0.2 10 ^3/uL Nucleated Red Blood Cells 0.0 % Sodium Level 150 H 136-145 mmol/L Potassium Level 2.9 L 3.5-5.1 mmol/L Chloride Level 113 H 98-107 mmol/L Carbon Dioxide Level 20 20-31 mmol/L Anion Gap 17 H 5-15 Blood Urea Nitrogen 102 #*H 9-23 mg/dL Creatinine 2.79 H 0.550-1.02 mg/dL Glomerular Filtration Rate Calc 18 >90 mL/min BUN/Creatinine Ratio 36.6 H 10.0-20.0 Serum Glucose 139 H 74-106 mg/dL Calcium Level 9.5 8.7-10.4 mg/dL Phosphorus Level 5.5 H 2.4-5.1 mg/dL Magnesium Level 3.1 H 1.6-2.6 mg/dL Parathyroid Hormone (Intact) 155.1 H 18.4-80.1 pg/mL Lactic Acid Level 1.3 0.4-2.0 mmol/L Total Bilirubin 0.2 0.2-1.0 mg/dL Aspartate Amino Transferase (AST) 31 13-40 U/L Alanine Aminotransferase (ALT) 9 7-40 U/L Alkaline Phosphatase 109 46-116 U/L Total Protein 7.7 5.7-8.2 g/dL Albumin 4.4 3.2-4.8 g/dL Vitamin B12 Level 399 211-911 pg/mL Thyroid Stimulating Hormone (TSH) 0.33 L 0.55-4.78 uIU/mL Test 11/28/24 21:22 11/28/24 12:41 11/28/24 10:00 Range/Units Blood Gas Specimen Type Arterial Blood Gas Sample Site Left radial Blood Gas Patient Temperature 37.0 Arterial Blood Date Drawn [id number] Arterial Blood pH 7.360 7.350-7.450 Arterial Blood Partial Pressure CO2 34.4 32.0-45.0 mmHg Arterial Blood Partial Pressure O2 94.2 83.0-108.0 mmHg Arterial Blood HCO3 19.0 L 21.0-28.0 mmol/L Arterial Blood Oxygen Saturation 96.8 94.0-98.0 % Arterial Blood Base Excess -5.6 L -2.0-3.0 mmol/L Arterial Blood Oxyhemoglobin 95.4 94.0-98.0 % Arterial Blood Carboxyhemoglobin 0.5 0.5-1.5 % Arterial Blood Methemoglobin 0.9 0.0-1.5 % [place]one Test Yes Blood Gas Total Hemoglobin 13.40 12.0-16.0 g/dL Blood Gas Liter Flow 4.00 Blood Gas Modality Nasal cannula FiO2 % 36.0 Urine Color Yellow Yellow Urine Clarity Clear Clear Urine pH 5.5 5.0-9.0 Urine Specific [place] 1.017 1.001-1.035 Urine Protein 1+ H Negative Urine Ketones Negative Negative Urine Blood 2+ H Negative /uL Urine Nitrite Negative Negative Urine Bilirubin Negative Negative Urine Urobilinogen Normal Negative mg/dL Urine Leukocyte Esterase 2+ Negative /uL Urine RBC 1 0 - 4 /hpf Urine Microscopic WBC 23 H 0-5 /HPF Urine Squamous Epithelial Cells Few <5 /hpf Urine Bacteria None seen None Seen /hpf Urine Glucose Normal Normal mg/dL SARS-CoV-2 Antigen (Rapid) Negative NEGATIVE Assessment/Plan Assessment/Plan Acute metabolic encephalopathy, likely due to sepsis/hypernatremia/MS flare-u p/uremia Sepsis, likely due to UTI Complicated UTI UA shows UTI picture Urine/blood culture Empiric antibiotic ceftriaxone, and Unasyn IV fluid ? Multiple sclerosis flare-up Head CT scan shows no acute intracranial hemorrhage Patient was previously prescribed Tecfidera (for MS), but the patient is not adherent with the med Consulted neurology History of stroke History of hypertension Dyslipidemia Continue home meds JJ on possible CKD, baseline creatinine is not available Hypernatremia, DW 5 1/2 NS at 100 mL/hour Hypokalemia, repleted, trend potassium Hypophosphatemia Hypomagnesemia Nephrology on the board Osteoporosis Patient is on alendronate Severe malnutrition BMI is 15.8 DIET: Clear liquid diet DVT PROPHYLAXIS: Lovenox GI PROPHYLAXIS:: Protonix CODE STATUS: Goal of care discussed for more than 18 minutes, DNR DISPOSITION: Telemetry Patient's status and plan discussed with the patient and patient's at the bedside. Case discussed with Dr. Jeffrey. Plan discussed with: Patient, Spouse, Other (RN) My Orders Orders - VINAYAK MILLARD RESDIAAYUSH Procedure Category Date Status Time Rapid Influenza A&B LAB 11/29/24 Logged 09:14 Mrsa Screen JAMES 11/29/24 Logged 09:14 Basic Metabolic Panel LAB 11/29/24 Logged 13:00 Ampicillin & PHA 11/29/24 In Process Sulbactam Sodium 11:30 D5w/Sod Chl 0.45%/Kcl PHA 11/29/24 In Process 40meq 11:30 VINAYAK MILLARD RESDIENT Nov 29, 2024 14:51
--- NOTE | 2024-11-29 15:58 | DVHPNRES ---
Progress Note Date Seen: Nov 29, 2024 Resident Creating Document: VINAYAK MILLARD ANDREW Has the PT tested + for MRSA If YES, has PT been informed?: No Medical Necessity Reason Pt with a Central, PICC or Fol: No Subjective Review of Systems This is a 69-year-old female with past medical history of hypertension, multiple sclerosis, depression and stroke brought to the hospital due to altered mental status. Per patient's she has been altered since 1 month which has progressively worsened, and has been bed-bound since 3 weeks. He also reports that her oral intake has decreased, has been more forgetfulness, lost around 15 lb within last month, urinary incontinence and vomiting. She also a history of ground level fall 5 years back leading to left femur fracture (has put pain) an also had a ground level fall 1 month back. He denies a fever or any recent sick contact. PMHx: hypertension, multiple sclerosis, depression and stroke PSHx: Left hip surgery 5 years back Family history: Noncontributory Social history: Lives with the at home, since 3 weeks has been bed- bound, previously was using walker for mobility Home medication: She has poor adherence to the medicine, stopped taking MS medicine 3 years back, oxybutynin (4 urinary incontinence), alendronate, rosuvastatin, venlafaxine, gabapentin and lisinopril Allergic history: No known allergy Patient reports: No new complaints Objective vital signs Vital Sign Date Time Temp Pulse Resp B/P (MAP) Pulse Ox O2 Delivery O2 Flow Rate FiO2 11/29/24 12:34 97.4 144 18 108/61 (77) 97 97.4 11/29/24 10:25 Nasal Cannula* 4 36 Total Intake and Output 11/28/24 11/28/24 11/29/24 15:00 23:00 07:00 Intake Total 150 ml 295 ml Output Total 600 ml 525 ml Balance -450 ml -230 ml medications Current Medications Medications Dose Ordered Sig/Jenise Route Start Time Stop Time Status Last Admin Dose Admin Ipratropium [place] 0.5 mg Q4HPRN PRN NEB 11/28/24 20:45 Doxycycline Hyclate 100 ml @ 50 mls/hr Q12H IV 11/29/24 14:00 11/29/24 14:26 50 MLS/HR Enoxaparin Sodium 30 mg DAILY SC 11/29/24 10:00 11/29/24 09:12 30 MG Ampicillin Sodium/ Sulbactam Sodium 3 gm/Sodium Chloride 100 ml @ 100 mls/hr DAILY@1130 IV 11/29/24 11:30 11/29/24 14:38 100 MLS/HR Atorvastatin Calcium 40 mg HS PO 11/30/24 22:00 Gabapentin 200 mg BID PO 11/29/24 22:00 Pantoprazole Sodium 40 mg DAILY IV 11/30/24 10:00 Examination General Appearance: Alert, Oriented to person, disoriented to time and place, cachectic HEENT: Atraumatic, PERRLA, EOMI, Mucous membrane moist/pink Respiratory: Clear to auscultation, Normal air movement Cardiovascular: Regular rate, Normal S1, Normal S2, No murmurs, no chest wall tenderness Abdominal: Normal bowel sounds, Soft, No tenderness, No hepatospenomegaly, No masses Extremities: Bilateral lower limb bar turner, upon touch during physical examination patient reacts Skin: Scaly rashes on bilateral lower limb laboratory and microbiology Laboratory Tests 11/29/24 14:02 11/29/24 05:37 Test 11/29/24 14:02 Range/Units Serum Glucose 126 H 74-106 mg/dL Labs and/or images reviewed: Labs reviewed by me, Image(s) reviewed by me Problem List/Assessment/Plan Problem List/Assessment/Plan Acute metabolic encephalopathy, likely due to sepsis/hypernatremia/MS flare- up/uremia Sepsis, likely due to UTI Complicated UTI UA shows UTI picture Urine/blood culture Empiric antibiotic ceftriaxone, and Unasyn IV fluid ? Multiple sclerosis flare-up Head CT scan shows no acute intracranial hemorrhage Patient was previously prescribed Tecfidera (for MS), but the patient is not adherent with the med Consulted neurology History of stroke History of hypertension Dyslipidemia Continue home meds JJ on possible CKD, baseline creatinine is not available Hypernatremia, DW 5 1/2 NS at 100 mL/hour Hypokalemia, repleted, trend potassium Hypophosphatemia Hypomagnesemia Nephrology on the board Osteoporosis Patient is on alendronate Severe malnutrition BMI is 15.8 DIET: Clear liquid diet DVT PROPHYLAXIS: Lovenox GI PROPHYLAXIS:: Protonix CODE STATUS: Goal of care discussed for more than 18 minutes, DNR DISPOSITION: Telemetry Patient's status and plan discussed with the patient and patient's at the bedside. Case discussed with Dr. Jeffrey. Plan discussed with: Patient, Spouse, Other (RN) My Orders My Orders Orders - VINAYAK MILLARD RESDIAAYUSH Procedure Category Date Status Time Rapid Influenza A&B LAB 11/29/24 Logged 09:14 Mrsa Screen JAMES 11/29/24 Logged 09:14 Ampicillin & PHA 11/29/24 In Process Sulbactam Sodium 11:30 D5w/Sod Chl 0.45%/Kcl PHA 11/29/24 In Process 40meq 11:30 Free T4 (Free LAB 11/29/24 In Process Thyroxine) 14:25 Basic Metabolic Panel LAB 11/30/24 Verified 04:00 Complete Blood Count LAB 11/30/24 Verified 04:00 D5w/Sod Chl 0.45% PHA 11/29/24 Logged (D5w 1/2ns) 14:45 Gabapentin Capsule PHA 11/29/24 In Process (Neurontin Capsule) 22:00 Pantoprazole PHA 11/30/24 In Process (Protonix) 10:00 Atorvastatin (Lipitor) PHA 11/30/24 In Process 22:00 Date of Service: Nov 29, 2024 Billing Provider: ANISHA CLEMONS MD Common Visit Codes: [id number] INP/OBS CARE(HIGH) VINAYAK MILLARD RESDIENT Nov 29, 2024 15:58 ANISHA CLEMONS MD Dec 06, 2024 09:31
--- NOTE | 2024-11-29 16:21 | DVHCONRES ---
Date Seen: Nov 29, 2024 Resident Creating Document: KRISTIE MADRIGAL RESIDENT Referring Physician Dr.Sahil El Reason for Consultation jj History of Present Illness 69-year-old female patient with history of hypertension, multiple sclerosis and prior hip fracture surgery 1 2 months ago, who presented with progressive generalized weakness, slurred speech, dysphagia, decreased oral intake, forgetfu lness and altered level of consciousness over the past 2 weeks. Patient was initially able to consume liquids post surgery but began choking and now can not tolerate oral intake. She was noted to be slightly confused, alert but only oriented to to self with dry mucosa membranes and no lower extremity edema, suggesting dehydration. Her reports progressive decline in mobility and speech in the past month, attributed to multiple sclerosis and fracture recovery. Patient has a tracheal sounding voice, dry mouth and require IV fluids for hypotension and empiric antibiotic coverage for presumed sepsis due to UTI. She is not currently taking medication for multiple sclerosis as has not followed with Neurology in a long time. Urinalysis suggested urinary tract infection and she was found to have hypokalemia, elevated BUN/creatinine and signs of JJ on chronic kidney disease. Past Surgical History Hip fracture surgery 1-2 months ago. Family History: of family member G8 MOTHER Allergies: Coded Allergies: NO KNOWN ALLERGIES (Unverified , 11/28/24) Current Medications Current Medications Medications (Trade) Dose Ordered Sig/Jenise Route PRN Reason Start Time Stop Time Status Last Admin Ipratropium [place] (Atrovent Medneb) 0.5 mg Q4HPRN PRN NEB SHORTNESS OF BREATH 11/28/24 20:45 Potassium Chloride 100 ml @ 50 mls/hr Q2H IV 11/28/24 23:30 11/28/24 23:55 DC Potassium Chloride 50 ml @ 25 mls/hr Q2H IV 11/28/24 23:45 11/29/24 03:44 DC 11/29/24 02:16 Doxycycline Hyclate 100 ml @ 50 mls/hr Q12H IV 11/29/24 14:00 11/29/24 14:26 Piperacillin Sod/ Tazobactam Sod 100 ml @ 25 mls/hr Q12HR IV 11/29/24 10:00 11/29/24 11:29 DC 11/29/24 09:09 Enoxaparin Sodium (Lovenox) 30 mg DAILY SC 11/29/24 10:00 11/29/24 09:12 Potassium Chloride 50 ml @ 25 mls/hr Q2H IV 11/29/24 08:00 11/29/24 11:59 DC 11/29/24 10:54 Sodium Chloride 100 ml @ 50 mls/hr Q2H IV 11/29/24 08:00 11/29/24 11:59 DC 11/29/24 10:00 Potassium Chloride/Sodium Chloride 1,000 ml @ 100 mls/hr Q10H IV 11/29/24 09:30 11/29/24 11:33 DC Ampicillin Sodium/ Sulbactam Sodium 3 gm/Sodium Chloride 100 ml @ 100 mls/hr DAILY@1130 IV 11/29/24 11:30 11/29/24 14:38 Atorvastatin Calcium (Lipitor) 40 mg HS PO 11/30/24 22:00 Gabapentin (Neurontin Capsule) 200 mg BID PO 11/29/24 22:00 Pantoprazole Sodium (Protonix) 40 mg DAILY IV 11/30/24 10:00 Review of Systems General: Weakness, decreased oral intake, drug mouth. Neurology: Confusion, dysphagia, forgetfulness, speech slurring. Respiratory: No cough or shortness of breaths. Cardiac: No chest pain, tachycardia noted. GI: Anorexia, no nausea or vomiting. : Difficulty voiding, now with Ellison catheter. Skin: No rash or breakdown. Vital Signs Vital Signs Date Time Temp Pulse Resp B/P (MAP) Pulse Ox O2 Delivery O2 Flow Rate FiO2 11/29/24 12:34 97.4 144 18 108/61 (77) 97 97.4 11/29/24 10:25 Nasal Cannula* 4 36 Physical Exam Physical exam: General: Elderly female, appears fatigued, mildly confused. Neuro: Alert, oriented to self only, speech slurred: Motor weakness noted. HEENT: Dry mucosa, no icterus. Cardiovascular: Heart rate tachycardic, blood pressure 108/61: No murmurs. Respiratory: Clear to auscultation bilaterally, no rales or wheezes. Abdomen soft, nondistended. Skin: Intact, no ulcers or erythema. : Ellison catheter in place, draining clear urine. Labs/Diagnostic Data Labs Test 11/29/24 14:02 11/29/24 12:45 11/29/24 10:27 11/29/24 05:37 Range/Units Sodium Level 155 #H 136-145 mmol/L Potassium Level 2.7 L 3.5-5.1 mmol/L Chloride Level 119 H 98-107 mmol/L Carbon Dioxide Level 19 L 20-31 mmol/L Anion Gap 17 H 5-15 Blood Urea Nitrogen 88 #*H 9-23 mg/dL Creatinine 2.39 H 0.550-1.02 mg/dL Glomerular Filtration Rate Calc 22 >90 mL/min BUN/Creatinine Ratio 36.8 H 10.0-20.0 Serum Glucose 126 H 74-106 mg/dL Calcium Level 9.2 8.7-10.4 mg/dL Urine Osmolality 404 mOsm/kg Urine Creatinine 34.06 30.0-125.0 mg/dL Urine Protein/Creatinine Ratio 2.13 Urine Sodium 54 40-220 mmol/L Urine Total Protein 72.5 H 1-14 mg/dL Urine Opiates Screen Neg NEGATIVE Urine Fentanyl Screen Neg NEGATIVE Urine Barbiturates Screen Neg NEGATIVE Urine Phencyclidine Screen Neg NEGATIVE Urine Amphetamines Screen Neg NEGATIVE Urine Benzodiazepines Screen Neg NEGATIVE Urine Cocaine Screen Neg NEGATIVE Urine Cannabinoids Screen Neg NEGATIVE Prothrombin Time 12.0 H 9.3-11.8 sec Prothrombin Time INR 1.15 0.9-1.15 Activated Partial Thromboplast Time 27.3 24.5-34.5 SEC Vitamin D 25-Hydroxy 29.9 L 30.0-100 ng/mL Free Thyroxine (T4) Calculated 0.72 L 0.89-1.76 ng/dL White Blood Count 16.7 H 4.4-10.8 10^3/uL Red Blood Count 4.08 4.0-5.20 10^6/uL Hemoglobin 12.1 L 12.2-16.2 g/dL Hematocrit 36.4 36.0-46.0 % Mean Corpuscular Volume 89.3 80.0-100.0 fL Mean Corpuscular Hemoglobin 29.8 28.0-32.0 pg Mean Corpuscular Hemoglobin Concent 33.4 32.0-36.0 g/dL Red Cell Distribution Width 15.2 H 11.8-14.3 % Platelet Count 302 140-450 10^3/uL Mean Platelet Volume 8.7 6.9-10.8 fL Neutrophils (%) (Auto) 89.7 H 37.0-80.0 % Lymphocytes (%) (Auto) 3.3 L 10.0-50.0 % Monocytes (%) (Auto) 6.8 0.0-12.0 % Eosinophils (%) (Auto) 0.0 0.0-7.0 % Basophils (%) (Auto) 0.2 0.0-2.0 % Neutrophils # (Auto) 15.0 H 1.6-8.6 10 ^3/uL Lymphocytes # (Auto) 0.6 0.4-5.4 10 ^3/uL Monocytes # (Auto) 1.1 0-1.3 10 ^3/uL Eosinophils # (Auto) 0 0-0.8 10 ^3/uL Basophils # (Auto) 0 0-0.2 10 ^3/uL Nucleated Red Blood Cells 0.0 % Phosphorus Level 5.5 H 2.4-5.1 mg/dL Magnesium Level 3.1 H 1.6-2.6 mg/dL Parathyroid Hormone (Intact) 155.1 H 18.4-80.1 pg/mL Test 11/28/24 21:31 11/28/24 21:22 11/28/24 12:41 11/28/24 10:00 Range/Units Lactic Acid Level 1.3 0.4-2.0 mmol/L Total Bilirubin 0.2 0.2-1.0 mg/dL Aspartate Amino Transferase (AST) 31 13-40 U/L Alanine Aminotransferase (ALT) 9 7-40 U/L Alkaline Phosphatase 109 46-116 U/L Total Protein 7.7 5.7-8.2 g/dL Albumin 4.4 3.2-4.8 g/dL Vitamin B12 Level 399 211-911 pg/mL Thyroid Stimulating Hormone (TSH) 0.33 L 0.55-4.78 uIU/mL Blood Gas Specimen Type Arterial Blood Gas Sample Site Left radial Blood Gas Patient Temperature 37.0 Arterial Blood Date Drawn [id number] Arterial Blood pH 7.360 7.350-7.450 Arterial Blood Partial Pressure CO2 34.4 32.0-45.0 mmHg Arterial Blood Partial Pressure O2 94.2 83.0-108.0 mmHg Arterial Blood HCO3 19.0 L 21.0-28.0 mmol/L Arterial Blood Oxygen Saturation 96.8 94.0-98.0 % Arterial Blood Base Excess -5.6 L -2.0-3.0 mmol/L Arterial Blood Oxyhemoglobin 95.4 94.0-98.0 % Arterial Blood Carboxyhemoglobin 0.5 0.5-1.5 % Arterial Blood Methemoglobin 0.9 0.0-1.5 % [place] Test Yes Blood Gas Total Hemoglobin 13.40 12.0-16.0 g/dL Blood Gas Liter Flow 4.00 Blood Gas Modality Nasal cannula FiO2 % 36.0 Urine Color Yellow Yellow Urine Clarity Clear Clear Urine pH 5.5 5.0-9.0 Urine Specific [place] 1.017 1.001-1.035 Urine Protein 1+ H Negative Urine Ketones Negative Negative Urine Blood 2+ H Negative /uL Urine Nitrite Negative Negative Urine Bilirubin Negative Negative Urine Urobilinogen Normal Negative mg/dL Urine Leukocyte Esterase 2+ Negative /uL Urine RBC 1 0 - 4 /hpf Urine Microscopic WBC 23 H 0-5 /HPF Urine Squamous Epithelial Cells Few <5 /hpf Urine Bacteria None seen None Seen /hpf Urine Glucose Normal Normal mg/dL SARS-CoV-2 Antigen (Rapid) Negative NEGATIVE Assessment Assessment: Acute kidney injury on chronic kidney disease Left renal cyst 2 cm Hypokalemia Hypomagnesemia Hyperphosphatemia Secondary hyperparathyroidism Hypothyroidism Hypertension Sepsis due to UTI Plan: Continue IV antibiotics Follow-up on culture results Strict I&Os Continue IV fluids for volume depletion Monitor electrolytes, creatinine Vitamin-D replacement Monitor magnesium and phosphate Kidney ultrasound Urine protein/creatinine ratio PTH levels Case discussed with Dr. Kenyon Goals of care discussed with the patient for 26 minutes Code Status: Full code Patient seen and examined by myself today with the medicience resident, I agree with his assessment and plan. Plan discussed with: Patient KRISTIE MADRIGAL Nov 29, 2024 16:21 JAHAIRA KENYON MD Nov 29, 2024 16:49
[2024-11-29] MEDS: D5W/SOD CHL 0.45%/KCL 40MEQ 1,000 ML IV ONE (17:07)
[2024-11-29] MEDS: PANTOPRAZOLE 40 MG/10 ML VIAL INJ IV ONE (17:35)
[2024-11-29] MEDS: ATORVASTATIN 20 MG TAB PO ONE (17:35)
[2024-11-29] MEDS: GABAPENTIN 100 MG CAP PO ONE (17:35)
--- NOTE | 2024-11-29 17:38 | MEDREC ---
[facility] Intervention Section I [facility] Intervention: Review courses of therapy (PLEASE CONSIDER SWITCHING UNASYN TO ZOSYN FOR EMPIRIC TREATMENT OF SEPSIS DUE TO UTI) VIRGINIE DICKSON PHARMACIST Nov 29, 2024 17:38
[2024-11-29] MEDS: D5W 5% 1,000 ML IV SCH (19:47)
[2024-11-29] MEDS ORDERED: OXYB5TAB14 PO (20:05)
[2024-11-29] MEDS ORDERED: VENL75CA3 PO (20:05)
[2024-11-29] MEDS ORDERED: LISI-285 PO (20:05)
[2024-11-29] MEDS ORDERED: MECL12.586 PO (20:05)
[2024-11-29] MEDS ORDERED: [UNRECOGNIZED DRUG - CODE] PO (20:05)
[2024-11-29] MEDS ORDERED: GABA-1250 PO (20:05)
[2024-11-29] MEDS ORDERED: ROSU20TA56 PO (20:05)
[2024-11-29] MEDS ORDERED: ALEN35TA18 PO (20:05)
[2024-11-29] MEDS: GABAPENTIN 100 MG CAP PO SCH (21:13)
[2024-11-30] VITALS (8 sets, daily range): BP systolic 98–115; BP diastolic 46–60; PULSE 72–102; RESP 16–18; TEMP 97.6–98; O2SAT 82–99
[2024-11-30 04:00] LABS: Basophils # (auto) 0 10 ^3/uL (0-0.2); Basophils % (auto) 0.1 % (0.0-2.0); Eosinophils # (auto) 0 10 ^3/uL (0-0.8); Hematocrit 32.3 % (36.0-46.0); Hemoglobin 11.1 g/dL (12.2-16.2); Lymphocytes # (auto) 0.5 10 ^3/uL (0.4-5.4); Lymphocytes % (auto) 2.7 % (10.0-50.0); Mean Corpuscular Hemoglobin 30.4 pg (28.0-32.0); Mean Corpuscular Hgb Conc. 34.3 g/dL (32.0-36.0); Mean Corpuscular Volume 88.4 fL (80.0-100.0); Monocytes # (auto) 1.3 10 ^3/uL (0-1.3); Monocytes % (auto) 6.6 % (0.0-12.0); Neutrophils # (auto) 17.4 10 ^3/uL (1.6-8.6); Neutrophils % (auto) 90.6 % (37.0-80.0); Platelet Count (auto) 280 10^3/uL (140-450); Red Blood Cells 3.65 10^6/uL (4.0-5.20); Red Cell Distribution Width 15.6 % (11.8-14.3); White Blood Cell 19.2 10^3/uL (4.4-10.8)
[2024-11-30 04:10] LABS: Calcium 9.1 mg/dL (8.7-10.4)
[2024-11-30 04:11] LABS: Anion Gap 14 (5-15)
[2024-11-30 04:13] LABS: Carbon Dioxide 19 mmol/L (20-31); Chloride 125 mmol/L (98-107); Potassium 2.9 mmol/L (3.5-5.1); Sodium 158 mmol/L (136-145)
[2024-11-30 04:16] LABS: BUN/Creatinine Ratio 38.6 (10.0-20.0)
[2024-11-30 04:18] LABS: Blood Urea Nitrogen 78 mg/dL (9-23); Glucose 121 mg/dL (74-106)
--- NOTE | 2024-11-30 06:34 | DVHPNRES ---
Progress Note Date Seen: Nov 30, 2024 Resident Creating Document: VINAYAK MILLARD ANDREW Has the PT tested + for MRSA If YES, has PT been informed?: No Medical Necessity Reason Pt with a Central, PICC or Fol: No Subjective Review of Systems Patient was seen and examined at the bedside. Patient is feeling since yesterday but still the patient is confused and could not communicate properly. Sodium history raised at 158, and potassium is 2.9, but serum creatinine/BUN is downtrending. Objective vital signs Vital Sign Date Time Temp Pulse Resp B/P (MAP) Pulse Ox O2 Delivery O2 Flow Rate FiO2 11/30/24 06:06 99 Nasal Cannula 3.0 11/30/24 06:06 32 11/30/24 05:00 97.6 81 18 101/59 (73) 97.6 Total Intake and Output 11/29/24 11/29/24 11/30/24 15:00 23:00 07:00 Intake Total 1000 ml 440 ml 475 ml Output Total 800 ml 800 ml Balance 1000 ml -360 ml -325 ml medications Current Medications Medications Dose Ordered Sig/Jenise Route Start Time Stop Time Status Last Admin Dose Admin Ipratropium [place] 0.5 mg Q4HPRN PRN NEB 11/28/24 20:45 Doxycycline Hyclate 100 ml @ 50 mls/hr Q12H IV 11/29/24 14:00 11/30/24 02:35 50 MLS/HR Enoxaparin Sodium 30 mg DAILY SC 11/29/24 10:00 11/29/24 09:12 30 MG Ampicillin Sodium/ Sulbactam Sodium 3 gm/Sodium Chloride 100 ml @ 100 mls/hr DAILY@1130 IV 11/29/24 11:30 11/29/24 14:38 100 MLS/HR Atorvastatin Calcium 40 mg HS PO 11/30/24 22:00 Gabapentin 200 mg BID PO 11/29/24 22:00 11/29/24 21:13 200 MG Pantoprazole Sodium 40 mg DAILY IV 11/30/24 10:00 Dextrose 1,000 ml @ 100 mls/hr Q10H IV 11/29/24 18:45 11/30/24 17:44 11/29/24 19:47 100 MLS/HR Examination General Appearance: Alert, Oriented to person, disoriented to time and place, cachectic HEENT: Atraumatic, PERRLA, EOMI, Mucous membrane moist/pink Respiratory: Clear to auscultation, Normal air movement Cardiovascular: Regular rate, Normal S1, Normal S2, No murmurs, no chest wall tenderness Abdominal: Normal bowel sounds, Soft, No tenderness, No hepatospenomegaly, No masses Extremities: Bilateral lower limb are tender, upon touch during physical examination patient reacts Skin: Scaly rashes on bilateral lower limb laboratory and microbiology Laboratory Tests 11/30/24 03:53 Test 11/30/24 03:53 Range/Units Serum Glucose 121 H 74-106 mg/dL Microbiology Date/Time Source Procedure Growth Status 11/28/24 21:31 Blood Blood Culture - Preliminary NO GROWTH AFTER 24 HOURS OF INCUBATION. Resulted Labs and/or images reviewed: Labs reviewed by me, Image(s) reviewed by me Problem List/Assessment/Plan Problem List/Assessment/Plan Acute metabolic encephalopathy, likely due to sepsis/hypernatremia/MS flare- up/uremia Acute hypoxic respiratory failure, Sepsis, likely due to UTI Complicated UTI UA shows UTI picture Urine/blood culture Empiric antibiotic Unasyn and doxycycline IV fluid Multiple sclerosis with atypical features Head CT scan shows no acute intracranial hemorrhage MRI shows mild cerebral atrophy. Moderate white matter disease consistent with given history of multiple sclerosis Patient was previously prescribed Tecfidera (for MS), but the patient is not adherent with the med Neurology is on the board, recommended EEG and follow up on outpatient basis History of stroke History of hypertension Dyslipidemia Continue home meds JJ on possible CKD, baseline creatinine is not available Hypophosphatemia Hypomagnesemia Acute moderate hyponatremia Free water deficit, 3 L, nephrology recommended half-normal saline for motor deficits repletion Volume status, hypovolemia DW 5 at 100 mL/hour Target, to correct 10 mEq/liter in 24 hr Sodium trend q.12 hours Pelvic ultrasound shows right pelvic folic Moderate hypokalemia Magnesium is within normal limits KCl with D5W at 100 mL per Osteoporosis Patient is on alendronate Severe malnutrition BMI is 15.8 DIET: Clear liquid diet DVT PROPHYLAXIS: Lovenox GI PROPHYLAXIS:: Protonix CODE STATUS: Goal of care discussed for more than 18 minutes, DNR DISPOSITION: Telemetry Patient's status and plan discussed with the patient and patient's at the bedside. Case discussed with Dr. Jeffrey. Plan discussed with: Patient, Spouse My Orders My Orders Orders - VINAYAK MILLARD RESDIENT Procedure Category Date Status Time Rapid Influenza A&B LAB 11/29/24 Logged 09:14 Mrsa Screen JAMES 11/29/24 Logged 09:14 Ampicillin & PHA 11/29/24 In Process Sulbactam Sodium 11:30 Gabapentin Capsule PHA 11/29/24 In Process (Neurontin Capsule) 22:00 Pantoprazole PHA 11/30/24 In Process (Protonix) 10:00 Atorvastatin (Lipitor) PHA 11/30/24 In Process 22:00 Date of Service: Nov 30, 2024 Billing Provider: ANISHA CLEMONS MD Common Visit Codes: [id number] INP/OBS CARE(HIGH) VINAYAK MILLARD RESDIENT Nov 30, 2024 06:34 ANISHA CLEMONS MD Dec 06, 2024 09:36
[2024-11-30] MEDS ORDERED: IBUP1TAB5 PO (06:38)
[2024-11-30 07:17] LABS: Magnesium 2.5 mg/dL (1.6-2.6)
[2024-11-30 07:19] LABS: Phosphorus 3.3 mg/dL (2.4-5.1)
[2024-11-30 08:26] LABS: Rapid Influenza A Negative (Negative); Rapid Influenza B Negative (Negative)
[2024-11-30] MEDS: PANTOPRAZOLE 40 MG/10 ML VIAL INJ IV SCH (08:35)
[2024-11-30] MEDS: POTASSIUM CHLORIDE 40 MEQ in D5W 5% 1,000 ML IV SCH (08:42)
[2024-11-30] MEDS: D5W 5% 1,000 ML IV SCH (10:45)
--- NOTE | 2024-11-30 10:55 | DVHPN2 ---
Progress Note - Dictate Date Seen: Nov 30, 2024 Has the PT tested + for MRSA If YES, has PT been informed?: No Medical Necessity Reason Pt with a Central, PICC or Fol: No Subjective MsSalas Hilliard is a left-handed female with a history of hypertension, depression, stroke. She was admitted to the [facility] on 11/28/2024 with a chief company of altered mental status. I have seen and examined the patient, I have discussed with her nurse, mike, she looks more energized today, awake, oriented to person, place, she follows verbal commands Blood culture, 11/28/2024: Urinalysis, 11/28/2024: WBC: 23, urine leukocyte esterase: 2+ CBC, 11/28/2024: Compensated metabolic acidosis WBC/HB/PLT/MCV, 12/08/2024: 20.6/13.2/348/88.3. 11/29/2024: 16.7/12.1/302/89.3 Sodium, 11/28/2024: 144, 146, 11/29/2024: 150 Potassium, 11/28/2024: 2.3, 11/29/2024: 2.9 Anion gap, 11/29/2024: 17 BUN/CR, 11/28/2024: 102/3.71, 11/29/2024: 102/2.79 Glucose, 11/28/2024: 152 Liver function tests, 11/28/2024: Normal TSH, 11/28/2024: 0.33 Chest x-ray, 11/28/2024: No acute intrathoracic abnormality CT head, 11/28/2024: 1. No acute intracranial hemorrhage 2. No CT findings of territorial ischemia MRI head, 11/29/2024: Limited, incomplete exam. Patient was noncooperative. Significant motion artifact. Mild cerebral atrophy. Moderate white matter disease consistent with given history of multiple sclerosis. Consider follow-up exam when patient is able to cooperate vital signs Vital Sign Date Time Temp Pulse Resp B/P (MAP) Pulse Ox O2 Delivery O2 Flow Rate FiO2 11/30/24 06:06 99 Nasal Cannula 3.0 11/30/24 06:06 32 11/30/24 05:00 97.6 81 18 101/59 (73) 97.6 Total Intake and Output 11/29/24 11/29/24 11/30/24 15:00 23:00 07:00 Intake Total 1000 ml 440 ml 475 ml Output Total 800 ml 800 ml Balance 1000 ml -360 ml -325 ml medications Current Medications Medications Dose Ordered Sig/Jenise Route Start Time Stop Time Status Last Admin Dose Admin Ipratropium [place] 0.5 mg Q4HPRN PRN NEB 11/28/24 20:45 Doxycycline Hyclate 100 ml @ 50 mls/hr Q12H IV 11/29/24 14:00 11/30/24 02:35 50 MLS/HR Enoxaparin Sodium 30 mg DAILY SC 11/29/24 10:00 11/30/24 08:35 30 MG Ampicillin Sodium/ Sulbactam Sodium 3 gm/Sodium Chloride 100 ml @ 100 mls/hr DAILY@1130 IV 11/29/24 11:30 11/29/24 14:38 100 MLS/HR Atorvastatin Calcium 40 mg HS PO 11/30/24 22:00 Gabapentin 200 mg BID PO 11/29/24 22:00 11/30/24 08:53 200 MG Pantoprazole Sodium 40 mg DAILY IV 11/30/24 10:00 11/30/24 08:35 40 MG Potassium Chloride 40 meq/ Dextrose 1,020 ml @ 100 mls/hr [id number] IV 11/30/24 06:45 11/30/24 08:42 100 MLS/HR Dextrose 1,000 ml @ 125 mls/hr Q8H IV 11/30/24 10:45 12/01/24 22:00 UNV objective General: the patient is well developed and nourished. No acute distress. MENTAL STATUS: Subjective SPEECH, LANGUAGE, HIGHER CORTICAL FUNCTION: no aphasia, mild dysarthria CRANIAL NERVES: Intact visual ordoñez to confrontation. The optic discs were sharp. Pupils are equal, round and reactive. EOMs full and conjugate. No nystagmus. Facial sensation intact in all three divisions bilaterally. Mandibular strength intact. Facial muscles symmetrical and strength intact. SENSATION: Sensation to touch and pinprick is normal. MOTOR: Normal tone in the upper and lower extremity. Normal muscle bulk. No fasciculations. No abnormal movements or posturing. Muscle strength of the major groups in the left extremities is: Upper: 4/5, lower: 2/5. Muscle strength of the major groups in the right extremities is: Upper: 4-5/5, Lowe: 3/5. REFLEXES: Deep tendon reflexes are symmetrical. No pathological reflexes. CEREBELLAR/COORDINATION: Unremarkable GAIT/STATION: deferred. laboratory and microbiology Laboratory Tests 11/30/24 03:53 Test 11/30/24 03:53 Range/Units Serum Glucose 121 H 74-106 mg/dL Problem List Altered mental status/metabolic encephalopathy, general weakness secondary to: Urinary tract infection Leukocytosis/? Sepsis Metabolic acidosis Hypernatremia/activity dehydration/acute kidney failure Multiple sclerosis with atypical feature Assessment/Plan Monitoring Supportive treatment Telemetry Urine culture Blood culture EEG IV antibiotics DVT prophylaxis/Lovenoxee Up to chair Physical therapy Nephrology on case Follow up with her doctors on discharge ALLISON Follow up with me on discharge ALLISON She is likely have a poor prognosis This medical document was created using an electronic medical record system with [employer] dictation system. Although this document has been carefully reviewed, there may still be some phonetic and typographical errors. These areas are purely typographical due to imperfections of the software programs, and do not reflect any compromise in the patient's medical care. Prognosis poor Plan discussed with: Other Total Time (mins): 35 JORGE GONZALEZ MD Nov 30, 2024 10:55
[2024-11-30] MEDS: D5W/SOD CHL 0.45% 1,000 ML IV SCH (13:45)
--- NOTE | 2024-11-30 14:45 | DVHPN2 ---
Progress Note Date Seen: Nov 30, 2024 Resident Creating Document: KRISTIE MADRIGAL RESIDENT Has the PT tested + for MRSA If YES, has PT been informed?: No Medical Necessity Reason Pt with a Central, PICC or Fol: No Subjective Review of Systems Patient was examined at bedside, still alert and oriented x1, s patient is currently being managed for hyper natremia today serum sodium remains elevated potassium was low but has been replaced. BUN and creatinine improving suggesting slow renal recovery but the patient is still clinically volume depleted and dehydrated. We will continue following up in BNP, renal panel and electrolytes Monitor fluid balance and neurologic status and blood pressure. Review of systems unable to obtain based on patient's neurologic status. Patient reports: No new complaints Other Systems: Patient seen and examined by myself today in rounds with the medicine resident, I agree with his assessment and plan as documented in this note Objective vital signs Vital Sign Date Time Temp Pulse Resp B/P (MAP) Pulse Ox O2 Delivery O2 Flow Rate FiO2 11/30/24 09:30 97.8 80 17 102/60 (74) 82 97.8 11/30/24 08:00 Nasal Cannula* 4 36 Total Intake and Output 11/29/24 11/29/24 11/30/24 15:00 23:00 07:00 Intake Total 1000 ml 440 ml 475 ml Output Total 800 ml 800 ml Balance 1000 ml -360 ml -325 ml medications Current Medications Medications Dose Ordered Sig/Jenise Route Start Time Stop Time Status Last Admin Dose Admin Ipratropium [place] 0.5 mg Q4HPRN PRN NEB 11/28/24 20:45 Doxycycline Hyclate 100 ml @ 50 mls/hr Q12H IV 11/29/24 14:00 11/30/24 02:35 50 MLS/HR Enoxaparin Sodium 30 mg DAILY SC 11/29/24 10:00 11/30/24 08:35 30 MG Ampicillin Sodium/ Sulbactam Sodium 3 gm/Sodium Chloride 100 ml @ 100 mls/hr DAILY@1130 IV 11/29/24 11:30 11/29/24 14:38 100 MLS/HR Atorvastatin Calcium 40 mg HS PO 11/30/24 22:00 Gabapentin 200 mg BID PO 11/29/24 22:00 11/30/24 08:53 200 MG Pantoprazole Sodium 40 mg DAILY IV 11/30/24 10:00 11/30/24 08:35 40 MG Dextrose 1,000 ml @ 125 mls/hr Q8H IV 11/30/24 10:45 12/01/24 22:00 Dextrose/Sodium Chloride 1,000 ml @ 250 mls/hr Q4H IV 11/30/24 13:45 11/30/24 15:45 UNV Examination: GENERAL:Abnormal, HEENT:Normal, NECK:Normal, LUNGS:Normal, CVS:Normal, ABDOMEN:Normal, MSK:Abnormal, SKIN:Normal, NEURO:Abnormal, :Normal laboratory and microbiology Laboratory Tests 11/30/24 03:53 Test 11/30/24 03:53 Range/Units Serum Glucose 121 H 74-106 mg/dL Microbiology Date/Time Source Procedure Growth Status 11/28/24 21:31 Blood Blood Culture - Preliminary NO GROWTH AFTER 24 HOURS OF INCUBATION. Resulted Problem List/Assessment/Plan Problem List/Assessment/Plan Assessment: Acute kidney injury on chronic kidney disease likely secondary due to volume depletion/dehydration Left renal cyst 2 cm Persistent Hypernatremia Hypokalemia Hypomagnesemia Hyperphosphatemia Secondary hyperparathyroidism Hypothyroidism Hypertension Sepsis due to UTI Plan: Hypernatremia likely from water deficit and dehydration continue fluid replacement with 0.45% normal saline Estimated free water deficits and correct gradually Monitor mental status and sodium trends Continue IV antibiotics Follow-up on culture results Strict I&Os Monitor magnesium and phosphate Case discussed with Dr. Darby Goals of care discussed with the patient for 26 minutes Code Status: Full code Plan discussed with: Patient Dietary Evaluation Review Comments: Encourage and Monitor POI intake to meet her needs. consider PO suppplements if POI intake declines below 50% Expected Outcomes/Goals: maintain wt KRISTIE MADRIGAL RESIDENT Nov 30, 2024 14:44 JAHAIRA DARBY MD Nov 30, 2024 15:04
[2024-11-30 16:40] LABS: Anion Gap 11 (5-15); Carbon Dioxide 21 mmol/L (20-31)
[2024-11-30 16:45] LABS: BUN/Creatinine Ratio 40.3 (10.0-20.0)
[2024-11-30 16:48] LABS: Blood Urea Nitrogen 73 mg/dL (9-23); Chloride 122 mmol/L (98-107); Glucose 308 mg/dL (74-106); Sodium 154 mmol/L (136-145)
[2024-11-30 16:56] LABS: Potassium 2.2 mmol/L (3.5-5.1)
[2024-11-30] MEDS: POTASSIUM CHL 20MEQ/50ML 50 ML IV SCH (17:34)
[2024-11-30] MEDS: SODIUM CHL 0.9% 50 ML IV SCH (17:34)
[2024-11-30] MEDS: ATORVASTATIN 20 MG TAB PO SCH (22:06)
[2024-12-01] VITALS (7 sets, daily range): BP systolic 100–134; BP diastolic 21–81; PULSE 69–106; RESP 18–21; TEMP 97.4–98.6; O2SAT 92–100
[2024-12-01 01:54] LABS: Anion Gap 12 (5-15); Carbon Dioxide 19 mmol/L (20-31); Chloride 124 mmol/L (98-107); Potassium 2.8 mmol/L (3.5-5.1); Sodium 155 mmol/L (136-145)
[2024-12-01 01:59] LABS: BUN/Creatinine Ratio 39.3 (10.0-20.0)
[2024-12-01 02:02] LABS: Blood Urea Nitrogen 59 mg/dL (9-23); Glucose 125 mg/dL (74-106)
[2024-12-01] MEDS ORDERED: POTASSIUM CHL 20MEQ/100ML 100 ML IV SCH (02:30)
[2024-12-01] MEDS: PHENYLEPHRINE HCL 10 MG/ML VL ONE (04:18)
[2024-12-01] MEDS: NOREPINEPHRINE 8 MG/250ML KIT 0 ML IV ONE (04:22)
[2024-12-01 04:29] LABS: Base Excess -6.7 mmol/L (-2.0-3.0)
[2024-12-01 04:44] LABS: Basophils # (auto) 0 10 ^3/uL (0-0.2); Basophils % (auto) 0.3 % (0.0-2.0); Eosinophils # (auto) 0.1 10 ^3/uL (0-0.8); Eosinophils % (auto) 0.8 % (0.0-7.0); Hematocrit 31.7 % (36.0-46.0); Hemoglobin 10.6 g/dL (12.2-16.2); Lymphocytes # (auto) 0.6 10 ^3/uL (0.4-5.4); Lymphocytes % (auto) 3.5 % (10.0-50.0); Mean Corpuscular Hgb Conc. 33.4 g/dL (32.0-36.0); Mean Corpuscular Volume 89.7 fL (80.0-100.0); Monocytes # (auto) 1.2 10 ^3/uL (0-1.3); Monocytes % (auto) 6.4 % (0.0-12.0); Platelet Count (auto) 258 10^3/uL (140-450); Red Blood Cells 3.53 10^6/uL (4.0-5.20); Red Cell Distribution Width 15.9 % (11.8-14.3)
[2024-12-01] MEDS: POTASSIUM CHL 20MEQ/50ML 50 ML IV ONE (04:44)
[2024-12-01] MEDS: POTASSIUM CHL 20MEQ/50ML 50 ML IV SCH (04:56)
[2024-12-01] MEDS: SODIUM CHLORIDE 0.9% 2,000 ML IV ONE (04:59)
[2024-12-01 05:08] LABS: Alanine Aminotransferase 15 U/L (7-40); Albumin 3.3 g/dL (3.2-4.8); Alkaline Phosphatase 85 U/L (46-116); Anion Gap 12 (5-15); BUN/Creatinine Ratio 36.1 (10.0-20.0); Calcium 8.8 mg/dL (8.7-10.4)
[2024-12-01 05:14] LABS: Aspartate Aminotransferase 40 U/L (13-40); Bilirubin, Total 0.2 mg/dL (0.2-1.0); Blood Urea Nitrogen 53 mg/dL (9-23); Carbon Dioxide 18 mmol/L (20-31); Chloride 124 mmol/L (98-107); Glucose 152 mg/dL (74-106); Sodium 154 mmol/L (136-145)
--- NOTE | 2024-12-01 06:47 | RESUS ---
CODE ASSIST ASSESSSMENT Initial Information Code Assist Date: Dec 01, 2024 Code Assist Time: 04:15 Room # 216B Provider Name DR. ANGELO Time Notified: 04:15 Time PMD returned call: 04:15 Crash Cart Opened and Supplies: No Situation Staff concerned/worried, speci: SBP <90 or 10 from baseli Situation comment: Patient's blood pressure noted to be decreasing after multiple attempts. Patient is verbally unresponsive at this time and determined to be high risk for Code Blue. Rapid response called Background Background: 69 y.o female with PMHx of MS and HTN, presents to the ED via EMS for an evaluation of generalized weakness. Per EMS, spouse of scene reported patient's decrease in food intake due to dysphagia x a couple of days and also stated increased forgetfulness. Patient presents to the ED asymptomatic, is able to answer some yes and no questions but does not recall full past medical history. PT HAS BEEN HYPOKALEMIC AND HYPERNATREMIC BEEN REPLACED DAILY Assessment Temperature (Fahrenheit): 97.8 Blood Pressure Systolic: 100 Blood Pressure Diastolic: 53 Respiratory Rate: 20 O2 Sat by Pulse Oximetry: 100 Assessment comment: INITIALLY DIFFICULT TO WAKE UP BUT AFTER 200 ML OF FLUIDS PT AWAKE WITH RETURN OF MENTATION TO BASELINE. Recommendations/Interventions Procedures: Accu check (131), CMP, CBC, Troponin, Cardiac Monitoring, O2 Mask/NC Outcome Outcome: Problem Resolved Team Members Team Members BRET ANTONIO RN HS, HERRERA RN, RACH RN, ALLAN BAR FINISH OPERATOR CHARGE, IDALIA GEORGE RT. critical care time 37 mins Date of Service: Dec 01, 2024 Billing Provider: JEET MARQUEZ MD Common Visit Codes: [id number] CARE 30-74 MIN BRET FARR Dec 01, 2024 06:47 JEET MARQUEZ MD Dec 01, 2024 10:39
[2024-12-01] MEDS: SODIUM CHL 0.9% 50 ML IV SCH (07:41)
[2024-12-01] MEDS: SOD CHL 0.45% 1,000 ML IV ONE (07:55)
--- NOTE | 2024-12-01 11:29 | ECG ---
[facility] Test Date: 2024-12-01 Test Time: 04:41:07 Pat Name: DAVID MARIA Department: Respiratoy Room: 0216T B Gender: F Tube Knitter: CELINA : 1955 Requested By: SHIRA MARTÍNEZ Order Number: [id number] Reading MD: Jer Thorne Measurements Intervals [place] Rate: 122 P: 89 [place]: 128 QRS: 0 QRSD: 95 T: 87 QT: 359 QTc: 512 Interpretive Statements Sinus tachycardia Low voltage with right axis deviation ST depr, consider ischemia, anterolateral lds Prolonged QT interval Baseline wander in lead(s) V4,V6 Electronically Signed On 12-02-2024 20:27:14 PDT by Jer Thorne Please click the below link to view image of tracing.
[2024-12-01] MEDS: D5W/SOD CHL 0.45% 1,000 ML IV ONE (11:47)
[2024-12-01] MEDS: AMPICILLIN & SULBACTAM SODIUM 3 GM in SODIUM CHL 0.9% 100 ML IV SCH (12:06)
--- NOTE | 2024-12-01 12:52 | DVH ---
Exam: CT CT AB PEL WO CON-NO ORAL OR IV History: Pelvic Mass Comparison Study: None Technique: Multidetector spiral CT of the abdomen was performed from lung bases to pubic symphysis. I maging was performed without IV contrast. Axial, coronal and sagittal multiplanar reformats were obta ined from the axial data set by the technologist. Radiation Dose : 1. Abdomen/Pelvis: CTDIvol 9.42 mGy, DLP 445.14 mGy*cm. Findings: Evaluation of solid organs is limited due to lack of intravenous contrast use. Lung Bases: Bilateral lower lobe airspace disease. Liver: The liver is normal in size. No focal lesions. Gallbladder and Biliary Tree: Unremarkable Spleen: Unremarkable Pancreas: The pancreas is grossly normal in appearance. Adrenal Glands: Unremarkable Kidneys: Kidneys are grossly normal without calculi or hydronephrosis. Bladder: Bladder is decompressed with a Ellison catheter and cannot be adequately assessed. Bowel: The stomach is grossly normal in appearance. Moderate volume colonic stool. Diverticulosis. Th e appendix is not visualized; however, no secondary findings of acute appendicitis identified. Ascites: Absent Lymphadenopathy: No mesenteric, retroperitoneal or periportal lymphadenopathy. Abdominal Wall and Mesentery: Unremarkable. Vasculature: The visualized abdominal aorta is normal in size and caliber. There is extensive athero sclerotic calcification of the aorta and its branches. Evaluation of abdominal and pelvic vessels is limited due to lack of intravenous contrast. Pelvic Organs: Unremarkable Musculoskeletal: No aggressive focal bony lesions, acute fractures or dislocation. Left hip surgical hardware. IMPRESSION: No acute abdominal or pelvic findings. Bilateral lower lobe airspace disease. No pelvic mass. Radiation optimization: All CT scans at this facility use at least one of these dose optimization kamar hniques: automated exposure control mA and/or kV adjustment per patient size (includes targeted exam s where dose is matched to clinical indication) or iterative reconstruction.
--- NOTE | 2024-12-01 15:03 | DVHPN2 ---
Progress Note Date Seen: Dec 01, 2024 Resident Creating Document: KRISTIE MADRIGAL RESIDENT Has the PT tested + for MRSA If YES, has PT been informed?: No Medical Necessity Reason Pt with a Central, PICC or Fol: No Subjective Review of Systems 69 year old patient female with improving renal function (BUN/creatinine ratio, creatinine), but with persistent hypernatremia and hypokalemia. The electrolyte imbalance likely due to underlying volume status changes. Continue with IV fluids D5 0.45% half-normal saline to gradually correct hypernatremia, monitor electrolytes daily and follow up on osmolality and urine studies. Replete potassium as needed. Monitor fluid balance and clinical status. Patient reports: No new complaints Changes from previous H/P or p: No Changes Review of Systems: HEENT:Normal, CVS:Normal, RESPIRATORY:Normal, GI:Normal, :Abnormal, NEURO:Abnormal Other Systems: Patient seen and examined by myself today on rounds with the medicine resident, I agree with his assessment and plan Objective vital signs Vital Sign Date Time Temp Pulse Resp B/P (MAP) Pulse Ox O2 Delivery O2 Flow Rate FiO2 12/01/24 13:00 97.9 88 21 112/58 (76) 95 97.9 12/01/24 01:00 Nasal Cannula* 4 36 Total Intake and Output 11/30/24 11/30/24 12/01/24 15:00 23:00 07:00 Intake Total 1500 ml 2250 ml Output Total 350 ml 1150 ml Balance 1150 ml 1100 ml medications Current Medications Medications Dose Ordered Sig/Jenise Route Start Time Stop Time Status Last Admin Dose Admin Ipratropium [place] 0.5 mg Q4HPRN PRN NEB 11/28/24 20:45 Cancel Doxycycline Hyclate 100 ml @ 50 mls/hr Q12H IV 11/29/24 14:00 12/01/24 03:07 50 MLS/HR Enoxaparin Sodium 30 mg DAILY SC 11/29/24 10:00 12/01/24 09:30 30 MG Atorvastatin Calcium 40 mg HS PO 11/30/24 22:00 11/30/24 22:06 40 MG Gabapentin 200 mg BID PO 11/29/24 22:00 12/01/24 09:30 200 MG Pantoprazole Sodium 40 mg DAILY IV 11/30/24 10:00 12/01/24 09:30 40 MG Ampicillin Sodium/ Sulbactam Sodium 3 gm/Sodium Chloride 100 ml @ 100 mls/hr Q12HR IV 12/01/24 10:00 12/01/24 12:06 100 MLS/HR Ipratropium [place] 0.5 mg Q6HWA NEB 12/01/24 18:00 Levalbuterol HCl 1.25 mg Q6HR NEB 12/01/24 18:00 laboratory and microbiology Laboratory Tests 12/01/24 04:28 Test 12/01/24 04:28 Range/Units Serum Glucose 152 H 74-106 mg/dL Microbiology Date/Time Source Procedure Growth Status 11/28/24 21:31 Blood Blood Culture - Preliminary NO GROWTH AFTER 48 HOURS OF INCUBATION. Resulted 11/28/24 12:41 Voided Urine Urine Culture - Preliminary Resulted Problem List/Assessment/Plan Problem List/Assessment/Plan Assessment: Acute kidney injury on chronic kidney disease likely secondary due to volume depletion/dehydration Left renal cyst 2 cm Persistent Hypernatremia Hypokalemia Hypomagnesemia Hyperphosphatemia Secondary hyperparathyroidism Hypothyroidism Hypertension Sepsis due to UTI Plan: Hypernatremia likely from water deficit and dehydration continue fluid replacement with 0.45% normal saline Urine studies, pending Estimated free water deficits and correct gradually Monitor mental status and sodium trends Continue IV antibiotics Follow-up on culture results Strict I&Os Monitor magnesium and phosphate Case discussed with Dr. Darby Goals of care discussed with the patient for 26 minutes Code Status: Full code Plan discussed with: Patient Dietary Evaluation Review Comments: Encourage and Monitor POI intake to meet her needs. consider PO suppplements if POI intake declines below 50% Expected Outcomes/Goals: maintain wt KRISTIE MADRIGAL RESIDENT Dec 01, 2024 15:03 JAHAIRA DARBY MD Dec 01, 2024 17:07
[2024-12-01 15:35] LABS: Protein, Urine 81.6 mg/dL (1-14)
[2024-12-01 15:36] LABS: Creatinine, Urine 23.29 mg/dL (30.0-125.0); Urine Protein/Creatinine Ratio 3.5
--- NOTE | 2024-12-01 16:01 | DVHPNRES ---
Progress Note Date Seen: Dec 01, 2024 Resident Creating Document: VINAYAK MILLARD ANDREW Has the PT tested + for MRSA If YES, has PT been informed?: No Medical Necessity Reason Pt with a Central, PICC or Fol: No Subjective Review of Systems Patient seen and examined at the bedside. Patient is confused and could not communicate properly. Patient reports: No new complaints Objective vital signs Vital Sign Date Time Temp Pulse Resp B/P (MAP) Pulse Ox O2 Delivery O2 Flow Rate FiO2 12/01/24 13:00 97.9 88 21 112/58 (76) 95 97.9 12/01/24 01:00 Nasal Cannula* 4 36 Total Intake and Output 11/30/24 11/30/24 12/01/24 15:00 23:00 07:00 Intake Total 1500 ml 2250 ml Output Total 350 ml 1150 ml Balance 1150 ml 1100 ml medications Current Medications Medications Dose Ordered Sig/Jenise Route Start Time Stop Time Status Last Admin Dose Admin Ipratropium [place] 0.5 mg Q4HPRN PRN NEB 11/28/24 20:45 Cancel Doxycycline Hyclate 100 ml @ 50 mls/hr Q12H IV 11/29/24 14:00 12/01/24 03:07 50 MLS/HR Enoxaparin Sodium 30 mg DAILY SC 11/29/24 10:00 12/01/24 09:30 30 MG Atorvastatin Calcium 40 mg HS PO 11/30/24 22:00 11/30/24 22:06 40 MG Gabapentin 200 mg BID PO 11/29/24 22:00 12/01/24 09:30 200 MG Pantoprazole Sodium 40 mg DAILY IV 11/30/24 10:00 12/01/24 09:30 40 MG Ampicillin Sodium/ Sulbactam Sodium 3 gm/Sodium Chloride 100 ml @ 100 mls/hr Q12HR IV 12/01/24 10:00 12/01/24 12:06 100 MLS/HR Ipratropium [place] 0.5 mg Q6HWA NEB 12/01/24 18:00 Cancel Levalbuterol HCl 1.25 mg Q6HR NEB 12/01/24 18:00 Cancel Examination General Appearance: Alert, Oriented to person, disoriented to time and place, cachectic HEENT: Atraumatic, PERRLA, EOMI, Mucous membrane moist/pink Respiratory: Clear to auscultation, Normal air movement Cardiovascular: Regular rate, Normal S1, Normal S2, No murmurs, no chest wall tenderness Abdominal: Normal bowel sounds, Soft, No tenderness, No hepatospenomegaly, No masses Extremities: Bilateral lower limb are tender, upon touch during physical examination patient reacts Skin: Scaly rashes on bilateral lower limb laboratory and microbiology Laboratory Tests 12/01/24 04:28 Test 12/01/24 04:28 Range/Units Serum Glucose 152 H 74-106 mg/dL Microbiology Date/Time Source Procedure Growth Status 12/01/24 12:00 Nose MRSA Screen - Final Complete 11/28/24 21:31 Blood Blood Culture - Preliminary NO GROWTH AFTER 48 HOURS OF INCUBATION. Resulted 11/28/24 12:41 Voided Urine Urine Culture - Preliminary Resulted Labs and/or images reviewed: Labs reviewed by me Problem List/Assessment/Plan Problem List/Assessment/Plan Acute metabolic encephalopathy, likely due to sepsis/hypernatremia/MS flare- up/uremia Acute hypoxic respiratory failure, likely due to pneumonia Pneumonia, likely due to Gram-positive/Gram-negative/viral Sepsis, likely due to UTI/pneumonia Complicated UTI UA shows UTI picture Urine/blood culture Empiric antibiotic Unasyn and doxycycline IV fluid Breathing treatment p.r.n. Multiple sclerosis with atypical features Head CT scan shows no acute intracranial hemorrhage MRI shows mild cerebral atrophy. Moderate white matter disease consistent with given history of multiple sclerosis Patient was previously prescribed Tecfidera (for MS), but the patient is not adherent with the med Neurology is on the board, recommended EEG and follow up on outpatient basis History of stroke History of hypertension Dyslipidemia Continue home meds JJ on possible CKD, baseline creatinine is not available Hypophosphatemia Hypomagnesemia Prediabetes, Hb A1c 6.4 Acute moderate hyponatremia Free water deficit, 3 L, nephrology recommended half-normal saline for water deficits repletion Volume status, hypovolemia DW 5 at 100 mL/hour Target, to correct 10 mEq/liter in 24 hr Sodium trend q.12 hours Pelvic ultrasound shows right pelvic folic Moderate hypokalemia Magnesium is within normal limits KCl with D5W at 100 mL per Osteoporosis Patient is on alendronate Severe malnutrition BMI is 15.8 DIET: Clear liquid diet DVT PROPHYLAXIS: Lovenox GI PROPHYLAXIS:: Protonix CODE STATUS: Goal of care discussed for more than 18 minutes, DNR DISPOSITION: Telemetry Patient's status and plan discussed with the patient and patient's at the bedside. Case discussed with Dr. Jeffrey. Plan discussed with: Patient, Spouse, Daughter, Other (RN) My Orders My Orders Orders - VINAYAK MILLARD RESDIAAYUSH Procedure Category Date Status Time Ampicillin & PHA 12/01/24 In Process Sulbactam Sodium 10:00 Up In Chair Qid MARLENY 11/30/24 In Process 16:51 Code Status CODE 11/30/24 Transmitted 17:10 Pureed DIET 12/01/24 Transmitted Breakfast Osmolality Urine LAB 12/01/24 In Process 06:43 Ct Ab Pel Wo Con-No CT 12/01/24 Resulted Oral Or Iv 10:41 Eeg Awake/Sleep/Act EEG 12/01/24 Verified 10:23 Dietary Evaluation Review Comments: Encourage and Monitor POI intake to meet her needs. consider PO suppplements if POI intake declines below 50% Expected Outcomes/Goals: maintain wt Date of Service: Dec 01, 2024 Billing Provider: ANISHA CLEMONS MD Common Visit Codes: [id number] INP/OBS CARE(HIGH) VINAYAK MILLARD RESDIENT Dec 01, 2024 16:01 ANISHA CLEMONS MD Dec 06, 2024 09:38
[2024-12-01] MEDS: D5W/SOD CHL 0.45% 1,000 ML IV SCH (16:45)
[2024-12-01] MEDS ORDERED: LEVALBUTEROL HCL 1.25 MG/3 ML NEB NEB SCH (18:00)
[2024-12-01] MEDS ORDERED: IPRATROPIUM BROM 0.5 MG/2.5ML INH SOL NEB SCH (18:00)
[2024-12-01 18:35] LABS: Albumin 3.5 g/dL (3.2-4.8); Alkaline Phosphatase 96 U/L (46-116); Anion Gap 10 (5-15); BUN/Creatinine Ratio 33.6 (10.0-20.0); Total Protein 6.2 g/dL (5.7-8.2)
[2024-12-01 19:02] LABS: Sodium 150 mmol/L (136-145)
[2024-12-01 19:04] LABS: Aspartate Aminotransferase 76 U/L (13-40); Bilirubin, Total 0.2 mg/dL (0.2-1.0); Blood Urea Nitrogen 40 mg/dL (9-23); Calcium 8.1 mg/dL (8.7-10.4); Carbon Dioxide 18 mmol/L (20-31); Chloride 122 mmol/L (98-107); Glucose 184 mg/dL (74-106); Potassium 3.1 mmol/L (3.5-5.1)
[2024-12-01 19:23] LABS: Alanine Aminotransferase 37 U/L (7-40)
--- NOTE | 2024-12-01 21:45 | DVHPN2 ---
Progress Note - Dictate Date Seen: Dec 01, 2024 Has the PT tested + for MRSA If YES, has PT been informed?: No Medical Necessity Reason Pt with a Central, PICC or Fol: No Subjective MsSalas Hilliard is a left-handed female with a history of hypertension, depression, stroke. She was admitted to the [facility] on 11/28/2024 with a chief company of altered mental status. I have seen and examined the patient, I have discussed with her nurse, mike, she looks more energized today, awake, oriented to person, place, she follows verbal commands She was looks better, but isl fragile EEG obtained, report is pending Blood culture, 11/28/2024: Urinalysis, 11/28/2024: WBC: 23, urine leukocyte esterase: 2+ CBC, 11/28/2024: Compensated metabolic acidosis WBC/HB/PLT/MCV, 12/08/2024: 20.6/13.2/348/88.3. 11/29/2024: 16.7/12.1/302/89.3 Sodium, 11/28/2024: 144, 146, 11/29/2024: 150 Potassium, 11/28/2024: 2.3, 11/29/2024: 2.9 Anion gap, 11/29/2024: 17 BUN/CR, 11/28/2024: 102/3.71, 11/29/2024: 102/2.79 Glucose, 11/28/2024: 152 Liver function tests, 11/28/2024: Normal TSH, 11/28/2024: 0.33 Chest x-ray, 11/28/2024: No acute intrathoracic abnormality CT head, 11/28/2024: 1. No acute intracranial hemorrhage 2. No CT findings of territorial ischemia MRI head, 11/29/2024: Limited, incomplete exam. Patient was noncooperative. Significant motion artifact. Mild cerebral atrophy. Moderate white matter disease consistent with given history of multiple sclerosis. Consider follow-up exam when patient is able to cooperate vital signs Vital Sign Date Time Temp Pulse Resp B/P (MAP) Pulse Ox O2 Delivery O2 Flow Rate FiO2 12/01/24 20:57 98.6 69 18 125/80 (95) 94 98.6 12/01/24 08:00 Nasal Cannula* 4 36 Total Intake and Output 11/30/24 11/30/24 12/01/24 15:00 23:00 07:00 Intake Total 1500 ml 2250 ml Output Total 350 ml 1150 ml Balance 1150 ml 1100 ml medications Current Medications Medications Dose Ordered Sig/Jenise Route Start Time Stop Time Status Last Admin Dose Admin Ipratropium [place] 0.5 mg Q4HPRN PRN [facility] 11/28/24 20:45 Cancel Doxycycline Hyclate 100 ml @ 50 mls/hr Q12H IV 11/29/24 14:00 12/01/24 16:26 50 MLS/HR Enoxaparin Sodium 30 mg DAILY SC 11/29/24 10:00 12/01/24 09:30 30 MG Atorvastatin Calcium 40 mg HS PO 11/30/24 22:00 11/30/24 22:06 40 MG Gabapentin 200 mg BID PO 11/29/24 22:00 12/01/24 09:30 200 MG Pantoprazole Sodium 40 mg DAILY IV 11/30/24 10:00 12/01/24 09:30 40 MG Ampicillin Sodium/ Sulbactam Sodium 3 gm/Sodium Chloride 100 ml @ 100 mls/hr Q12HR IV 12/01/24 10:00 12/01/24 12:06 100 MLS/HR Ipratropium [place] 0.5 mg Q6HWA [facility] 12/01/24 18:00 Cancel Levalbuterol HCl 1.25 mg Q6HR [facility] 12/01/24 18:00 Cancel Dextrose/Sodium Chloride 1,000 ml @ 75 mls/hr [id number] IV 12/01/24 16:45 12/01/24 16:45 75 MLS/HR objective General: the patient is well developed and nourished. No acute distress. MENTAL STATUS: Subjective SPEECH, LANGUAGE, HIGHER CORTICAL FUNCTION: no aphasia, mild dysarthria CRANIAL NERVES: Intact visual ordoñez to confrontation. The optic discs were sharp. Pupils are equal, round and reactive. EOMs full and conjugate. No nystagmus. Facial sensation intact in all three divisions bilaterally. Mandibular strength intact. Facial muscles symmetrical and strength intact. SENSATION: Sensation to touch and pinprick is normal. MOTOR: Normal tone in the upper and lower extremity. Normal muscle bulk. No fasciculations. No abnormal movements or posturing. Muscle strength of the major groups in the left extremities is: Upper: 4/5, lower: 2/5. Muscle strength of the major groups in the right extremities is: Upper: 4-5/5, Lowe: 3/5. REFLEXES: Deep tendon reflexes are symmetrical. No pathological reflexes. CEREBELLAR/COORDINATION: Unremarkable GAIT/STATION: deferred. laboratory and microbiology Laboratory Tests 12/01/24 18:00 12/01/24 04:28 Test 12/01/24 18:00 Range/Units Serum Glucose 184 H 74-106 mg/dL Problem List Altered mental status/metabolic encephalopathy, general weakness secondary to: Urinary tract infection Leukocytosis/? Sepsis Metabolic acidosis Hypernatremia/activity dehydration/acute kidney failure Multiple sclerosis with atypical feature Assessment/Plan Monitoring Supportive treatment Telemetry Urine culture Blood culture EEG IV antibiotics DVT prophylaxis/Lovenoxee Up to chair Physical therapy Nephrology on case Follow up with her doctors on discharge ALLISON Follow up with me on discharge ALLISON She is likely have a poor prognosis This medical document was created using an electronic medical record system with [employer] dictation system. Although this document has been carefully reviewed, there may still be some phonetic and typographical errors. These areas are purely typographical due to imperfections of the software programs, and do not reflect any compromise in the patient's medical care. Prognosis poor Dietary Evaluation Review Comments: Encourage and Monitor POI intake to meet her needs. consider PO suppplements if POI intake declines below 50% Expected Outcomes/Goals: maintain wt Plan discussed with: Other JORGE GONZALEZ MD Dec 01, 2024 21:45
[2024-12-01] MEDS: ACETAMINOPHEN 325 MG TAB PO ONE (22:06)
[2024-12-02] VITALS (10 sets, daily range): BP systolic 108–128; BP diastolic 67–81; PULSE 88–103; RESP 16–21; TEMP 97.3–97.9; O2SAT 90–100
--- NOTE | 2024-12-02 01:15 | DVHEEG2 ---
Neurology EEG Procedural Note Procedural Note EXAM DATE: 12/01/24 REFERRING DOCTOR: Dr. Gonzalez TECHNIQUE: Eighteen channels of EEG, 2 channels of EOG, and 1 channel of EKG were recorded using the International 10/20 system. CLINICAL DATA: The patient was referred for an EEG evaluation for the evidence of seizure disorder. MEDICATIONS: See chart BACKGROUND ACTIVITY: There was significant amount of electrode artifacts in the recording. While the patient was awake, the background activity consisted of poorly regulated 8 Hz rhythmic waveforms, symmetrically distributed over both posterior quadrants and was reactive to external stimuli ACTIVATION: Hyperventilation: Not done Photic Stimulation: Not done Sleep: Not seen IMPRESSION: This is a normal EEG. No focal, lateralized, or epileptiform features are noted. If clinically indicated to rule out a seizure disorder, recommend repeat EEG with sleep deprivation. The EKG channel showed a poor [place] [address] JORGE GONZALEZ MD Dec 02, 2024 01:15
[2024-12-02 07:03] LABS: Basophils # (auto) 0.1 10 ^3/uL (0-0.2); Basophils % (auto) 0.5 % (0.0-2.0); Eosinophils # (auto) 0.2 10 ^3/uL (0-0.8); Eosinophils % (auto) 1.4 % (0.0-7.0); Hematocrit 36.5 % (36.0-46.0); Hemoglobin 12.1 g/dL (12.2-16.2); Lymphocytes % (auto) 6.2 % (10.0-50.0); Mean Corpuscular Hemoglobin 29.6 pg (28.0-32.0); Mean Corpuscular Hgb Conc. 33.2 g/dL (32.0-36.0); Mean Corpuscular Volume 89.3 fL (80.0-100.0); Monocytes # (auto) 1.2 10 ^3/uL (0-1.3); Monocytes % (auto) 7.6 % (0.0-12.0); Neutrophils # (auto) 13.4 10 ^3/uL (1.6-8.6); Neutrophils % (auto) 84.3 % (37.0-80.0); Nucleated Red Blood Cells % 0.1 %; Platelet Count (auto) 267 10^3/uL (140-450); Red Blood Cells 4.08 10^6/uL (4.0-5.20); Red Cell Distribution Width 16.1 % (11.8-14.3); White Blood Cell 15.9 10^3/uL (4.4-10.8)
[2024-12-02 07:07] LABS: Alanine Aminotransferase 30 U/L (7-40); Alkaline Phosphatase 95 U/L (46-116); Anion Gap 13 (5-15); BUN/Creatinine Ratio 26.1 (10.0-20.0)
[2024-12-02 07:08] LABS: Albumin 3.2 g/dL (3.2-4.8)
[2024-12-02 07:10] LABS: Aspartate Aminotransferase 49 U/L (13-40); Bilirubin, Total 0.2 mg/dL (0.2-1.0); Blood Urea Nitrogen 30 mg/dL (9-23); Calcium 8.2 mg/dL (8.7-10.4); Carbon Dioxide 16 mmol/L (20-31); Chloride 121 mmol/L (98-107); Glucose 155 mg/dL (74-106); Potassium 2.9 mmol/L (3.5-5.1); Sodium 150 mmol/L (136-145)
--- NOTE | 2024-12-02 07:57 | ECG ---
[facility] Test Date: 2024-12-01 Test Time: 04:45:09 Pat Name: DAVID MARIA Department: Respiratoy Room: 0216T B Gender: F Billet Bed Operator: CELINA : 1955 Requested By: NATHANIEL DE LA ROSA Order Number: [id number] Reading MD: Jer Thorne Measurements Intervals [place] Rate: 145 P: 87 [place]: 117 QRS: -16 QRSD: 97 T: -39 QT: 359 QTc: 558 Interpretive Statements Sinus tachycardia LAE, consider biatrial enlargement Anterior infarct, old Repolarization abnormality, prob rate related Baseline wander in lead(s) V2,V4,V5 Electronically Signed On 12-02-2024 20:27:39 PDT by Jer Thorne Please click the below link to view image of tracing.
[2024-12-02] MEDS: SODIUM CHL 0.9% 50 ML IV SCH (09:30)
--- NOTE | 2024-12-02 09:49 | DVHPN2 ---
Progress Note Date Seen: Dec 02, 2024 Resident Creating Document: KRISTIE MADRIGAL RESIDENT Has the PT tested + for MRSA If YES, has PT been informed?: No Medical Necessity Reason Pt with a Central, PICC or Fol: No Subjective Review of Systems Patient is seen and examined at bedside, chemical stains showed hypernatremia, and creatinine improving. Patient will need to continue on IV 0.45% normal saline, urine studies showed improving in the progression of the renal function. Urine osmolality 390 Neurology on board Patient reports: No new complaints Changes from previous H/P or p: No Changes Review of Systems: HEENT:Normal, CVS:Normal, RESPIRATORY:Normal, GI:Normal, :Normal, MSK:Normal, NEURO:Normal Other Systems: Patient seen and examined by myself today in follow-up with the medicine resident and I agree with his assessment and plan Objective vital signs Vital Sign Date Time Temp Pulse Resp B/P (MAP) Pulse Ox O2 Delivery O2 Flow Rate FiO2 12/02/24 09:24 97.4 92 21 118/74 (89) 100 97.4 12/01/24 20:00 Nasal Cannula* 4 36 Total Intake and Output 12/01/24 12/01/24 12/02/24 15:00 23:00 07:00 Intake Total 600 ml 200 ml Output Total 1000 ml 1550 ml Balance -400 ml -1350 ml medications Current Medications Medications Dose Ordered Sig/Jenise Route Start Time Stop Time Status Last Admin Dose Admin Ipratropium [place] 0.5 mg Q4HPRN PRN NEB 11/28/24 20:45 Cancel Doxycycline Hyclate 100 ml @ 50 mls/hr Q12H IV 11/29/24 14:00 12/02/24 02:26 50 MLS/HR Enoxaparin Sodium 30 mg DAILY SC 11/29/24 10:00 12/02/24 09:28 30 MG Atorvastatin Calcium 40 mg HS PO 11/30/24 22:00 12/01/24 22:05 40 MG Gabapentin 200 mg BID PO 11/29/24 22:00 12/02/24 09:29 200 MG Pantoprazole Sodium 40 mg DAILY IV 11/30/24 10:00 12/02/24 09:27 40 MG Ampicillin Sodium/ Sulbactam Sodium 3 gm/Sodium Chloride 100 ml @ 100 mls/hr Q12HR IV 12/01/24 10:00 12/02/24 09:28 100 MLS/HR Ipratropium [place] 0.5 mg Q6HWA [facility] 12/01/24 18:00 Cancel Levalbuterol HCl 1.25 mg Q6HR NEB 12/01/24 18:00 Cancel Dextrose/Sodium Chloride 1,000 ml @ 125 mls/hr Q8H IV 12/02/24 08:45 Potassium Chloride 50 ml @ 25 mls/hr Q2H IV 12/02/24 09:30 12/02/24 15:29 Sodium Chloride 50 ml @ 25 mls/hr Q2H IV 12/02/24 09:30 12/02/24 15:29 Examination: GENERAL:Abnormal, HEENT:Normal, NECK:Normal, LUNGS:Normal, CVS:Normal, ABDOMEN:Normal, MSK:Abnormal, SKIN:Abnormal, NEURO:Abnormal, :Normal laboratory and microbiology Laboratory Tests 12/02/24 05:27 Test 12/02/24 05:27 Range/Units Serum Glucose 155 H 74-106 mg/dL Microbiology Date/Time Source Procedure Growth Status 12/01/24 12:00 Nose MRSA Screen - Final Complete 11/28/24 21:31 Blood Blood Culture - Preliminary NO GROWTH AFTER 72 HOURS OF INCUBATION. Resulted 11/28/24 12:41 Voided Urine Urine Culture - Preliminary Resulted Problem List/Assessment/Plan Problem List/Assessment/Plan Assessment: Acute kidney injury on chronic kidney disease likely secondary due to volume depletion/dehydration Sepsis due to UTI Left renal cyst 2 cm Persistent Hypernatremia Hypokalemia Hypomagnesemia Hyperphosphatemia Secondary hyperparathyroidism Central Hypothyroidism ? Hypertension Plan: Hypernatremia likely from water deficit and dehydration continue fluid replacement with 0.45% normal saline Urine studies, results showed slightly improving in renal function Monitor mental status and sodium trends Continue IV antibiotics Follow-up on culture results Strict I&Os Monitor magnesium and phosphate Neurology on board. Case discussed with Dr. Darby Goals of care discussed with the patient for 26 minutes Code Status: Full code Plan discussed with: Patient Dietary Evaluation Review Comments: Encourage and Monitor POI intake to meet her needs. consider PO suppplements if POI intake declines below 50% Expected Outcomes/Goals: maintain wt KRISTIE MADRIGAL RESIDENT Dec 02, 2024 09:49 JAHAIRA DARBY MD Dec 02, 2024 14:02
[2024-12-02] MEDS: D5W/SOD CHL 0.45% 1,000 ML IV SCH ×2 (10:02→21:59)
[2024-12-02] MEDS: POTASSIUM CHL 20MEQ/50ML 50 ML IV SCH (10:14)
--- NOTE | 2024-12-02 10:35 | DVHPN2 ---
Progress Note - Dictate Date Seen: Dec 02, 2024 Has the PT tested + for MRSA If YES, has PT been informed?: No Medical Necessity Reason Pt with a Central, PICC or Fol: No Subjective Ms. Hilliard is a left-handed female with a history of hypertension, depression, stroke. She was admitted to the [facility] on 11/28/2024 with a chief company of altered mental status. I have seen and examined the patient, I have discussed with her nurse and other medical staff, physical she was further stronger, she talks, but she was only oriented x 1-2. She follows verbal commands The case has been discussed with primary care team Blood culture, 11/28/2024: Urinalysis, 11/28/2024: WBC: 23, urine leukocyte esterase: 2+ CBC, 11/28/2024: Compensated metabolic acidosis WBC/HB/PLT/MCV, 12/08/2024: 20.6/13.2/348/88.3. 11/29/2024: 16.7/12.1/302/89.3 Sodium, 11/28/2024: 144, 146, 11/29/2024: 150 Potassium, 11/28/2024: 2.3, 11/29/2024: 2.9 Anion gap, 11/29/2024: 17 BUN/CR, 11/28/2024: 102/3.71, 11/29/2024: 102/2.79 Glucose, 11/28/2024: 152 Liver function tests, 11/28/2024: Normal TSH, 11/28/2024: 0.33 EEG, 12/01/2024: Normal Chest x-ray, 11/28/2024: No acute intrathoracic abnormality CT head, 11/28/2024: 1. No acute intracranial hemorrhage 2. No CT findings of territorial ischemia MRI head, 11/29/2024: Limited, incomplete exam. Patient was noncooperative. Significant motion artifact. Mild cerebral atrophy. Moderate white matter disease consistent with given history of multiple sclerosis. Consider follow-up exam when patient is able to cooperate vital signs Vital Sign Date Time Temp Pulse Resp B/P (MAP) Pulse Ox O2 Delivery O2 Flow Rate FiO2 12/02/24 09:24 97.4 92 21 118/74 (89) 100 97.4 12/01/24 20:00 Nasal Cannula* 4 36 Total Intake and Output 12/01/24 12/01/24 12/02/24 15:00 23:00 07:00 Intake Total 600 ml 200 ml Output Total 1000 ml 1550 ml Balance -400 ml -1350 ml medications Current Medications Medications Dose Ordered Sig/Jenise Route Start Time Stop Time Status Last Admin Dose Admin Ipratropium [place] 0.5 mg Q4HPRN PRN [facility] 11/28/24 20:45 Cancel Doxycycline Hyclate 100 ml @ 50 mls/hr Q12H IV 11/29/24 14:00 12/02/24 02:26 50 MLS/HR Enoxaparin Sodium 30 mg DAILY SC 11/29/24 10:00 12/02/24 09:28 30 MG Atorvastatin Calcium 40 mg HS PO 11/30/24 22:00 12/01/24 22:05 40 MG Gabapentin 200 mg BID PO 11/29/24 22:00 12/02/24 09:29 200 MG Pantoprazole Sodium 40 mg DAILY IV 11/30/24 10:00 12/02/24 09:27 40 MG Ampicillin Sodium/ Sulbactam Sodium 3 gm/Sodium Chloride 100 ml @ 100 mls/hr Q12HR IV 12/01/24 10:00 12/02/24 09:28 100 MLS/HR Ipratropium [place] 0.5 mg Q6HWA [facility] 12/01/24 18:00 Cancel Levalbuterol HCl 1.25 mg Q6HR [facility] 12/01/24 18:00 Cancel Potassium Chloride 50 ml @ 25 mls/hr Q2H IV 12/02/24 09:30 12/02/24 15:29 12/02/24 10:14 25 MLS/HR Sodium Chloride 50 ml @ 25 mls/hr Q2H IV 12/02/24 09:30 12/02/24 15:29 12/02/24 09:30 25 MLS/HR Multivitamins 1 tab DAILY PO 12/03/24 10:00 objective General: the patient is well developed and nourished. No acute distress. MENTAL STATUS: Subjective SPEECH, LANGUAGE, HIGHER CORTICAL FUNCTION: no aphasia, mild dysarthria CRANIAL NERVES: Intact visual ordoñez to confrontation. The optic discs were sharp. Pupils are equal, round and reactive. EOMs full and conjugate. No nystagmus. Facial sensation intact in all three divisions bilaterally. Mandibular strength intact. Facial muscles symmetrical and strength intact. SENSATION: Sensation to touch and pinprick is normal. MOTOR: Normal tone in the upper and lower extremity. Normal muscle bulk. No fasciculations. No abnormal movements or posturing. Muscle strength of the major groups in the left extremities is: Upper: 4/5, lower: 2/5. Muscle strength of the major groups in the right extremities is: Upper: 4-5/5, Lowe: 3/5. REFLEXES: Deep tendon reflexes are symmetrical. No pathological reflexes. CEREBELLAR/COORDINATION: Unremarkable GAIT/STATION: deferred. laboratory and microbiology Laboratory Tests 12/02/24 05:27 Test 12/02/24 05:27 Range/Units Serum Glucose 155 H 74-106 mg/dL Problem List Altered mental status/metabolic encephalopathy, general weakness secondary to: Urinary tract infection Leukocytosis/? Sepsis Metabolic acidosis Hypernatremia/activity dehydration/acute kidney failure Multiple sclerosis with atypical feature Assessment/Plan Monitoring Supportive treatment Telemetry Urine culture Blood culture IV antibiotics DVT prophylaxis/Lovenoxee Up to chair Physical therapy Nephrology on case Follow up with her doctors on discharge ALLISON Follow up with me on discharge ALLISON She is likely have a poor prognosis This medical document was created using an electronic medical record system with [employer] dictation system. Although this document has been carefully reviewed, there may still be some phonetic and typographical errors. These areas are purely typographical due to imperfections of the software programs, and do not reflect any compromise in the patient's medical care. Prognosis poor Dietary Evaluation Review Comments: Encourage and Monitor POI intake to meet her needs. consider PO suppplements if POI intake declines below 50% Expected Outcomes/Goals: maintain wt Plan discussed with: Other JORGE GONZALEZ MD Dec 02, 2024 10:35
--- NOTE | 2024-12-02 11:48 | DVH ---
CHEST RADIOGRAPH Indication: Assessment for Rales Technique: Single frontal view of the chest was obtained Comparison: XY CHEST PORTABLE on DOS: 11/28/24 FINDINGS: Lines and Tubes: None Lungs: Worsening bibasilar airspace disease. Pleura: No effusion. No pneumothorax. Cardiomediastinal contours: Unremarkable Bones: No acute osseous abnormality. IMPRESSION: Worsening bibasilar airspace disease.
[2024-12-02] MEDS: MULTIPLE VITAMIN TAB PO ONE (12:54)
[2024-12-02] MEDS: THIAMINE 100mg/ml INJ (200mg/2ml VIAL) IV ONE (12:56)
[2024-12-02] MEDS: D5W/SOD CHL 0.45%/KCL 40MEQ 1,000 ML IV ONE (14:10)
[2024-12-02 16:02] LABS: Anion Gap 10 (5-15)
[2024-12-02 16:18] LABS: BUN/Creatinine Ratio 22.9 (10.0-20.0)
[2024-12-02 16:28] LABS: Blood Urea Nitrogen 25 mg/dL (9-23); Carbon Dioxide 16 mmol/L (20-31); Chloride 124 mmol/L (98-107); Glucose 169 mg/dL (74-106); Potassium 4.2 mmol/L (3.5-5.1); Sodium 150 mmol/L (136-145)
--- NOTE | 2024-12-02 16:53 | DVHPNRES ---
Progress Note Date Seen: Dec 02, 2024 Resident Creating Document: VINAYAK MILLARD ANDREW Has the PT tested + for MRSA If YES, has PT been informed?: No Medical Necessity Reason Pt with a Central, PICC or Fol: No Subjective Review of Systems Patient seen and examined at the bedside. Patient is feeling better since admission but still confuse and can not communicate properly. Patient reports: No new complaints Changes from previous H/P or p: No Changes Objective vital signs Vital Sign Date Time Temp Pulse Resp B/P (MAP) Pulse Ox O2 Delivery O2 Flow Rate FiO2 12/02/24 13:00 97.3 98 21 115/76 (89) 100 97.3 12/02/24 08:00 Nasal Cannula* 4 36 Total Intake and Output 12/01/24 12/01/24 12/02/24 15:00 23:00 07:00 Intake Total 600 ml 200 ml Output Total 1000 ml 1550 ml Balance -400 ml -1350 ml medications Current Medications Medications Dose Ordered Sig/Jenise Route Start Time Stop Time Status Last Admin Dose Admin Ipratropium [place] 0.5 mg Q4HPRN PRN NEB 11/28/24 20:45 Cancel Doxycycline Hyclate 100 ml @ 50 mls/hr Q12H IV 11/29/24 14:00 12/02/24 13:58 50 MLS/HR Enoxaparin Sodium 30 mg DAILY SC 11/29/24 10:00 12/02/24 09:28 30 MG Atorvastatin Calcium 40 mg HS PO 11/30/24 22:00 12/01/24 22:05 40 MG Gabapentin 200 mg BID PO 11/29/24 22:00 12/02/24 09:29 200 MG Pantoprazole Sodium 40 mg DAILY IV 11/30/24 10:00 12/02/24 09:27 40 MG Ampicillin Sodium/ Sulbactam Sodium 3 gm/Sodium Chloride 100 ml @ 100 mls/hr Q12HR IV 12/01/24 10:00 12/02/24 09:28 100 MLS/HR Ipratropium [place] 0.5 mg Q6HWA NEB 12/01/24 18:00 Cancel Levalbuterol HCl 1.25 mg Q6HR NEB 12/01/24 18:00 Cancel Multivitamins 1 tab DAILY PO 12/03/24 10:00 Examination General Appearance: Alert, Oriented to person, disoriented to time and place, cachectic HEENT: Mucous membranes are dry, and skin turgor is decreased Respiratory: Clear to auscultation, Normal air movement Cardiovascular: Regular rate, Normal S1, Normal S2, No murmurs, no chest wall tenderness Abdominal: Normal bowel sounds, Soft, No tenderness, No hepatospenomegaly, No masses Extremities: Bilateral lower limb are tender, upon touch during physical examination patient reacts Skin: Scaly rashes on bilateral lower limb laboratory and microbiology Laboratory Tests 12/02/24 15:05 12/02/24 05:27 Test 12/02/24 15:05 Range/Units Serum Glucose 169 H 74-106 mg/dL Microbiology Date/Time Source Procedure Growth Status 12/01/24 12:00 Nose MRSA Screen - Final Complete 11/28/24 21:31 Blood Blood Culture - Preliminary NO GROWTH AFTER 72 HOURS OF INCUBATION. Resulted 11/28/24 12:41 Voided Urine Urine Culture - Preliminary Pseudomonas aeruginosa Resulted Labs and/or images reviewed: Labs reviewed by me, Image(s) reviewed by me Problem List/Assessment/Plan Problem List/Assessment/Plan Acute metabolic encephalopathy, likely due to sepsis/hypernatremia/MS flare- up/uremia Acute hypoxic respiratory failure, likely due to pneumonia Pneumonia, likely due to Gram-positive/Gram-negative/viral Sepsis, likely due to UTI/pneumonia Complicated UTI UA shows UTI picture Urine/blood culture Empiric antibiotic Unasyn and doxycycline IV fluid Breathing treatment p.r.n. Multiple sclerosis with atypical features Head CT scan shows no acute intracranial hemorrhage MRI shows mild cerebral atrophy. Moderate white matter disease consistent with given history of multiple sclerosis Patient was previously prescribed Tecfidera (for MS), but the patient is not adherent with the med Neurology is on the board, EEG is normal withn no focal, lateralized, or epileptiform features are noted History of stroke History of hypertension Dyslipidemia Continue home meds JJ on possible CKD, baseline creatinine is not available Hypophosphatemia Hypomagnesemia Prediabetes, Hb A1c 6.4 Acute moderate hyponatremia Free water deficit, 3 L, nephrology recommended half-normal saline for water deficits repletion Volume status, hypovolemia DW 5 at 125 mL/hour Target, to correct 10 mEq/liter in 24 hr Sodium trend q.12 hours Moderate hypokalemia Magnesium is within normal limits KCl with D5W at 100 mL per Osteoporosis Patient is on alendronate Severe malnutrition BMI is 15.8 DIET: Clear liquid diet DVT PROPHYLAXIS: Lovenox GI PROPHYLAXIS:: Protonix CODE STATUS: Goal of care discussed for more than 18 minutes, DNR DISPOSITION: Telemetry Patient's status and plan discussed with the patient and patient's at the bedside. Case discussed with Dr. Jeffrey. Plan discussed with: Patient, Other (RN) My Orders My Orders Orders - VINAYAK MILLARD Procedure Category Date Status Time Chest Xray 1 View XY 12/02/24 Resulted 10:01 Bipap/Cpap For Sleep RT 12/02/24 Logged Apnea 10:01 Multiple Vitamin PHA 12/03/24 In Process Tablet (Mvi Tab) 10:00 Stool Bacterial JAMES 12/02/24 In Process Culture 15:16 Stool Wbc LAB 12/02/24 In Process 15:16 Clostridium Difficile JAMES 12/02/24 In Process Toxin 16:16 Dietary Evaluation Review Comments: Encourage and Monitor POI intake to meet her needs. consider PO suppplements if POI intake declines below 50% Expected Outcomes/Goals: maintain wt Date of Service: Dec 02, 2024 Billing Provider: ANISHA CLEMONS MD Common Visit Codes: [id number] INP/OBS CARE(HIGH) VINAYAK MILLARD Dec 02, 2024 16:53 ANISHA CLEMONS MD Dec 05, 2024 15:04
[2024-12-02 23:10] LABS: Alanine Aminotransferase 28 U/L (7-40); Albumin 3.3 g/dL (3.2-4.8); Alkaline Phosphatase 95 U/L (46-116); Anion Gap 11 (5-15); Aspartate Aminotransferase 39 U/L (13-40); BUN/Creatinine Ratio 21.6 (10.0-20.0); Bilirubin, Total 0.3 mg/dL (0.2-1.0); Blood Urea Nitrogen 22 mg/dL (9-23); Potassium 3.5 mmol/L (3.5-5.1); Total Protein 6.1 g/dL (5.7-8.2)
[2024-12-02 23:43] LABS: Calcium 8.2 mg/dL (8.7-10.4); Carbon Dioxide 16 mmol/L (20-31); Chloride 122 mmol/L (98-107); Glucose 115 mg/dL (74-106); Sodium 149 mmol/L (136-145)
[2024-12-03] VITALS (8 sets, daily range): BP systolic 115–126; BP diastolic 69–77; PULSE 71–103; RESP 16–20; TEMP 98–98.5; O2SAT 75–100
[2024-12-03] MEDS: MULTIPLE VITAMIN TAB PO SCH (10:50)
--- NOTE | 2024-12-03 11:26 | DVHPN2 ---
Progress Note Date Seen: Dec 03, 2024 Has the PT tested + for MRSA If YES, has PT been informed?: No Medical Necessity Reason Pt with a Central, PICC or Fol: No Subjective Patient reports: No new complaints Other Systems: Patient seen and examined by myself today in follow-up O2 nasal cannula Objective vital signs Vital Sign Date Time Temp Pulse Resp B/P (MAP) Pulse Ox O2 Delivery O2 Flow Rate FiO2 12/03/24 09:40 93 Nasal Cannula* 3 32 12/03/24 08:00 96 12/03/24 04:54 98.5 20 120/77 (91) 98.5 Total Intake and Output 12/02/24 12/02/24 12/03/24 15:00 23:00 07:00 Intake Total 825 ml 1210 ml 100 ml Output Total 850 ml 600 ml Balance 825 ml 360 ml -500 ml medications Current Medications Medications Dose Ordered Sig/Jenise Route Start Time Stop Time Status Last Admin Dose Admin Ipratropium [place] 0.5 mg Q4HPRN PRN NEB 11/28/24 20:45 Cancel Enoxaparin Sodium 30 mg DAILY SC 11/29/24 10:00 12/03/24 10:50 30 MG Atorvastatin Calcium 40 mg HS PO 11/30/24 22:00 12/02/24 21:59 40 MG Gabapentin 200 mg BID PO 11/29/24 22:00 12/03/24 10:49 200 MG Pantoprazole Sodium 40 mg DAILY IV 11/30/24 10:00 12/03/24 10:50 40 MG Ipratropium [place] 0.5 mg Q6HWA [facility] 12/01/24 18:00 Cancel Levalbuterol HCl 1.25 mg Q6HR NEB 12/01/24 18:00 Cancel Multivitamins 1 tab DAILY PO 12/03/24 10:00 12/03/24 10:50 1 TAB Dextrose 1,000 ml @ 150 mls/hr Q6H40M IV 12/03/24 11:15 12/03/24 17:54 UNV Examination: LUNGS:Normal, CVS:Normal, MSK:Normal laboratory and microbiology Laboratory Tests 12/02/24 22:30 12/02/24 05:27 Test 12/02/24 22:30 Range/Units Serum Glucose 115 H 74-106 mg/dL Microbiology Date/Time Source Procedure Growth Status 12/01/24 12:00 Nose MRSA Screen - Final Complete 11/28/24 21:31 Blood Blood Culture - Preliminary NO GROWTH AFTER 72 HOURS OF INCUBATION. Resulted 11/28/24 12:41 Voided Urine Urine Culture - Preliminary Pseudomonas aeruginosa Resulted Problem List/Assessment/Plan Problem List/Assessment/Plan Acute kidney injury on chronic kidney disease likely secondary due to volume depletion/dehydration Pseudomonas aeruginosa UTI Left renal cyst 2 cm Hypernatremia to dehydration Hypokalemia Hypomagnesemia Hyperphosphatemia Secondary hyperparathyroidism Hypertension Recommendations Kidney function is improving Increased urine output Strict I&Os IV antibiotic IV IVF D5W at 100 cc/hour KCL replacement We will continue to follow Plan discussed with: Patient Dietary Evaluation Review Comments: Encourage and Monitor POI intake to meet her needs. consider PO suppplements if POI intake declines below 50% Expected Outcomes/Goals: maintain wt JAHAIRA DARBY MD Dec 03, 2024 11:26
--- NOTE | 2024-12-03 12:03 | MEDREC ---
[facility] ASP Intervention Section I [facility] ASP Intervention: Deescalate AB based on CS (The Preliminary Urine culture showed Pseudomonas aeruginosa - Possible Carbapenem Resistant Enterobacteriaceae. Per the IDSA guidelines, TMP-SMX, ciprofloxacin, or levofloxacin are preferred treatment options for pyelonephritis or cUTI caused by CRE, if susceptibility is demonstrated. Ceftazidime-avibactam, meropenem- vaborbactam, [id number], and cefiderocol are also preferred treatment options for pyelonephritis or cUTIs), Review courses of therapy SUSANNAH DAUGHERTY [facility] Dec 03, 2024 12:03
[2024-12-03] MEDS: D5W 5% 1,000 ML IV SCH (12:17)
[2024-12-03] MEDS: CEFEPIME 2GM/50ML NS 50 ML IV ONE (12:17)
--- NOTE | 2024-12-03 14:51 | DVHDSRES ---
Discharge Summary Date of Admission Resident Creating Document: EULALIO HAWKINS RESIDENT Nov 28, 2024 at 20:45 Date of Discharge: Dec 03, 2024 Admitting Diagnosis Acute toxic/metabolic encephalopathy Wounds: No wounds present at this time. Labs/Diagnostic Data: Laboratory Results Test 12/02/24 22:30 12/02/24 15:00 12/02/24 05:27 12/01/24 13:40 Sodium Level 149 mmol/L (136-145) Potassium Level 3.5 mmol/L (3.5-5.1) Chloride Level 122 mmol/L (98-107) Carbon Dioxide Level 16 mmol/L (20-31) Anion Gap 11 (5-15) Blood Urea Nitrogen 22 mg/dL (9-23) Creatinine 1.02 mg/dL (0.550-1.02) Glomerular Filtration Rate Calc 60 mL/min (>90) BUN/Creatinine Ratio 21.6 (10.0-20.0) Serum Glucose 115 mg/dL (74-106) Calcium Level 8.2 mg/dL (8.7-10.4) Total Bilirubin 0.3 mg/dL (0.2-1.0) Aspartate Amino Transferase (AST) 39 U/L (13-40) Alanine Aminotransferase (ALT) 28 U/L (7-40) Alkaline Phosphatase 95 U/L (46-116) Total Protein 6.1 g/dL (5.7-8.2) Albumin 3.3 g/dL (3.2-4.8) Stool for White Cells None seen White Blood Count 15.9 10^3/uL (4.4-10.8) Red Blood Count 4.08 10^6/uL (4.0-5.20) Hemoglobin 12.1 g/dL (12.2-16.2) Hematocrit 36.5 % (36.0-46.0) Mean Corpuscular Volume 89.3 fL (80.0-100.0) Mean Corpuscular Hemoglobin 29.6 pg (28.0-32.0) Mean Corpuscular Hemoglobin Concent 33.2 g/dL (32.0-36.0) Red Cell Distribution Width 16.1 % (11.8-14.3) Platelet Count 267 10^3/uL (140-450) Mean Platelet Volume 9.0 fL (6.9-10.8) Neutrophils (%) (Auto) 84.3 % (37.0-80.0) Lymphocytes (%) (Auto) 6.2 % (10.0-50.0) Monocytes (%) (Auto) 7.6 % (0.0-12.0) Eosinophils (%) (Auto) 1.4 % (0.0-7.0) Basophils (%) (Auto) 0.5 % (0.0-2.0) Neutrophils # (Auto) 13.4 10 ^3/uL (1.6-8.6) Lymphocytes # (Auto) 1.0 10 ^3/uL (0.4-5.4) Monocytes # (Auto) 1.2 10 ^3/uL (0-1.3) Eosinophils # (Auto) 0.2 10 ^3/uL (0-0.8) Basophils # (Auto) 0.1 10 ^3/uL (0-0.2) Nucleated Red Blood Cells 0.1 % Urine Osmolality 390 mOsm/kg Urine Creatinine 23.29 mg/dL (30.0-125.0) Urine Protein/Creatinine Ratio 3.50 Urine Sodium 62 mmol/L (40-220) Urine Potassium 32 mmol/L (12-62) Urine Total Protein 81.6 mg/dL (1-14) Test 12/01/24 04:28 12/01/24 04:20 12/01/24 04:10 11/30/24 06:00 Hemoglobin A1c 6.4 % A1C (<5.7) Lactic Acid Level 1.5 mmol/L (0.4-2.0) Magnesium Level 2.0 mg/dL (1.6-2.6) B-Type Natriuretic Peptide 592.43 pg/mL (0-100) Blood Gas Specimen Type Arterial Blood Gas Sample Site Right radial Blood Gas Patient Temperature 37.0 Arterial Blood Date Drawn [id number] Arterial Blood pH 7.306 (7.350-7.450) Arterial Blood Partial Pressure CO2 39.2 mmHg (32.0-45.0) Arterial Blood Partial Pressure O2 140.8 mmHg (83.0-108.0) Arterial Blood HCO3 19.1 mmol/L (21.0-28.0) Arterial Blood Oxygen Saturation 98.1 % (94.0-98.0) Arterial Blood Base Excess -6.7 mmol/L (-2.0-3.0) Arterial Blood Oxyhemoglobin 97.1 % (94.0-98.0) Arterial Blood Carboxyhemoglobin 0.3 % (0.5-1.5) Arterial Blood Methemoglobin 0.7 % (0.0-1.5) [place] Test Modified Blood Gas Total Hemoglobin 11.20 g/dL (12.0-16.0) Blood Gas Liter Flow 4.00 Blood Gas Modality Nasal cannula FiO2 % 36.0 POC Glucose 140 mg/dl (70-106) Influenza Type A Antigen Negative (Negative) Influenza Type B Antigen Negative (Negative) Test 11/30/24 03:53 11/29/24 12:45 11/29/24 10:27 11/29/24 05:37 Phosphorus Level 3.3 mg/dL (2.4-5.1) Urine Opiates Screen Neg (NEGATIVE) Urine Fentanyl Screen Neg (NEGATIVE) Urine Barbiturates Screen Neg (NEGATIVE) Urine Phencyclidine Screen Neg (NEGATIVE) Urine Amphetamines Screen Neg (NEGATIVE) Urine Benzodiazepines Screen Neg (NEGATIVE) Urine Cocaine Screen Neg (NEGATIVE) Urine Cannabinoids Screen Neg (NEGATIVE) Prothrombin Time 12.0 sec (9.3-11.8) Prothrombin Time INR 1.15 (0.9-1.15) Activated Partial Thromboplast Time 27.3 SEC (24.5-34.5) Vitamin D 25-Hydroxy 29.9 ng/mL (30.0-100) Free Thyroxine (T4) Calculated 0.72 ng/dL (0.89-1.76) Parathyroid Hormone (Intact) 155.1 pg/mL (18.4-80.1) Test 11/28/24 21:31 11/28/24 12:41 11/28/24 10:00 Vitamin B12 Level 399 pg/mL (211-911) Thyroid Stimulating Hormone (TSH) 0.33 uIU/mL (0.55-4.78) Urine Color Yellow (Yellow) Urine Clarity Clear (Clear) Urine pH 5.5 (5.0-9.0) Urine Specific [place] 1.017 (1.001-1.035) Urine Protein 1+ (Negative) Urine Ketones Negative (Negative) Urine Blood 2+ /uL (Negative) Urine Nitrite Negative (Negative) Urine Bilirubin Negative (Negative) Urine Urobilinogen Normal mg/dL (Negative) Urine Leukocyte Esterase 2+ /uL (Negative) Urine RBC 1 /hpf (0 - 4) Urine Microscopic WBC 23 /HPF (0-5) Urine Squamous Epithelial Cells Few /hpf (<5) Urine Bacteria None seen /hpf (None Seen) Urine Glucose Normal mg/dL (Normal) SARS-CoV-2 Antigen (Rapid) Negative (NEGATIVE) Other Laboratory Tests 12/02/24 22:30 12/02/24 05:27 Brief Hx & Hospital Course: This is a 69 y/o female with past medical history of hypertension, multiple sclerosis past surgical history of surgery for hip fracture presented with complaints of generalized weakness associated with dysphagia, forgetfulness and decreased food intake for last two weeks. Initially patient was confused alert and oriented x1, history was taken from at bedside who is next of kin. Upon admission, per , patient was admitted for surgery for a fracture almost 1-2 months ago. One month ago patient patient was started having difficulty walking, which the attributed both to a fracture and motor weakness because of multiple sclerosis. also mentioned patient had slurring of speech, that has been worsening for last one month and patient is on November 24 take any food, was able to take initially liquid food, with stroke but later started choking. Was spent mentioned patient had altered level of consciousness and dry mouth for last two weeks. He also mentioned patient had issues with passing urine. Today, patient was seen and examined at bedside. Patient reported still feeling with mild generalized weakness and unable to move the left lower extremity. Patient is not able to walk by her own. We had a long discussion at bedside regarding the possibility of home hospice which was explained in detail. Patient agreed with current plan and we will be discharged to home hospice. ROS Constitutional: Reports mild generalized weakness. Denies weight loss, fever and chills. HEENT: Denies changes in vision and hearing. Respiratory: Denies shortness of breath and cough Cardiovascular: Denies chest discomfort or palpitations GI: Denies abdominal pain, nausea, vomiting and diarrhea. : Denies dysuria and urinary frequency. Musculoskeletal: Denies myalgias and joint pain Skin: Denies rash and pruritus. Neurological: Reports inability to walk by her own and have limited mobility of the left lower extremity. Denies dizziness, headache, vision or hearing problems Physical examination General Appearance: Alert, Oriented to person, disoriented to time and place, cachectic HEENT: Mucous membranes are dry, and skin turgor is decreased Respiratory: Clear to auscultation, Normal air movement Cardiovascular: Regular rate, Normal S1, Normal S2, No murmurs, no chest wall tenderness Abdominal: Normal bowel sounds, Soft, No tenderness, No hepatospenomegaly, No masses Extremities: Bilateral lower limb are tender, upon touch during physical examination patient reacts Skin: Scaly rashes on bilateral lower limb Consults/Reason for consult Nephrology for JJ Operations or Procedures XY CHEST PORTABLE, HISTORY: cough COMPARISON: None None TECHNICAL DATA: 1 view of the chest was obtained. FINDINGS: Lines and tubes: None Cardiomediastinal silhouette: normal Pulmonary vasculature: normal Lung expansion: normal Lung airspace: normal Lung interstitium: normal Pleura: normal Pneumothorax: no Bones: Unremarkable Other: no IMPRESSION: No acute intrathoracic abnormality. EXAM: CT HEAD WITHOUT CONTRAST INDICATION: slurring of speach, rule out stroke TECHNIQUE: CT of the head without intravenous contrast. Radiation Dose Information: CT Dose: CTDI volume is 53.84 mGy. Dose-length product is 1904.99 mGy*cm The dose indicators for CT are the volume Computed Tomography (CT) Dose Index (CTDIvol) and the Dose Length Product (DLP), and are measured in units of mGy and mGy-cm, respectively. These indicators are not patient dose, but values generated from the CT scanner acquisition factors. The report includes radiation exposure data for exposures received during this examination. COMPARISON: None FINDINGS: There is no evidence of acute intracranial hemorrhage, extra-axial collection, mass effect, midline shift, herniation or hydrocephalus. Idiopathic bilateral basal ganglion calcifications. The ventricles, sulci and cisterns are age appropriate. The rae-white differentiation is intact. Patchy periventricular and subcortical white matter hypoattenuation is nonspecific but may be related to small vessel ischemic disease. The visualized paranasal sinuses and mastoid air cells are clear. The surrounding soft tissues and osseous structures are unremarkable. IMPRESSION: 1. No acute intracranial hemorrhage 2. No CT findings of territorial ischemia. CRITICAL FINDINGS Critical Result: Stroke Alert NEGATIVE Findings discussed with Gloria STEVENS , at 11/28/2024 10:06 PM, and acknowledged receipt and understanding of the findings. PROCEDURE: BRAIN HEAD WO CONTRAST INDICATION: multiple sclerosis EXAM DATE: 11/29/2024 12:56 PM COMPARISON: None TECHNIQUE: MRI of the brain without intravenous contrast. Limited, incomplete exam. Patient not cooperative. FINDINGS: Limited by motion. Only axial T2 and FLAIR sequences as well as sagittal T1 sequence was obtained. Diffusion-weighted imaging was also obtained. Diffusion weighted images of the brain demonstrate no evidence of acute infarction. There is no evidence of acute intracranial hemorrhage, extra-axial collection, mass effect, midline shift, herniation or hydrocephalus. Mild cerebral atrophy. Moderate periventricular and deep white matter signal abnormality. The major vascular flow voids are present. The visualized paranasal sinuses and mastoid air cells are clear. The surrounding soft tissues and osseous structures are unremarkable. IMPRESSION: 1. Limited, incomplete exam. Patient was noncooperative. Significant motion artifact. Mild cerebral atrophy. Moderate white matter disease consistent with given history of multiple sclerosis. Consider follow-up exam when patient is able to cooperate. INDICATION: jj TECHNIQUE: Multiple real-time sonographic images of the kidneys and bladder were obtained. COMPARISON: None FINDINGS: The right kidney measures 9 cm in length, which is normal in size. T Right pelvic fullness. The left kidney measures 7 cm in length, which is normal in size. No hydronephrosis. 2 Cm left renal cyst. Increased increased bilateral renal echogenicity. No large intraluminal masses are seen in the bladder. IMPRESSION: Right pelvic fullness. Bilateral medical renal disease Exam: CT CT AB PEL WO CON-NO ORAL OR IV History: Pelvic Mass Comparison Study: None Technique: Multidetector spiral CT of the abdomen was performed from lung bases to pubic symphysis. Imaging was performed without IV contrast. Axial, coronal and sagittal multiplanar reformats were obtained from the axial data set by the technologist. Radiation Dose : 1. Abdomen/Pelvis: CTDIvol 9.42 mGy, DLP 445.14 mGy*cm. Findings: Evaluation of solid organs is limited due to lack of intravenous contrast use. Lung Bases: Bilateral lower lobe airspace disease. Liver: The liver is normal in size. No focal lesions. Gallbladder and Biliary Tree: Unremarkable Spleen: Unremarkable Pancreas: The pancreas is grossly normal in appearance. Adrenal Glands: Unremarkable Kidneys: Kidneys are grossly normal without calculi or hydronephrosis. Bladder: Bladder is decompressed with a Ellison catheter and cannot be adequately assessed. Bowel: The stomach is grossly normal in appearance. Moderate volume colonic stool. Diverticulosis. The appendix is not visualized; however, no secondary findings of acute appendicitis identified. Ascites: Absent Lymphadenopathy: No mesenteric, retroperitoneal or periportal lymphadenopathy. Abdominal Wall and Mesentery: Unremarkable. Vasculature: The visualized abdominal aorta is normal in size and caliber. There is extensive atherosclerotic calcification of the aorta and its branches. Evaluation of abdominal and pelvic vessels is limited due to lack of intravenous contrast. Pelvic Organs: Unremarkable Musculoskeletal: No aggressive focal bony lesions, acute fractures or dislocation. Left hip surgical hardware. IMPRESSION: No acute abdominal or pelvic findings. Bilateral lower lobe airspace disease. No pelvic mass. Radiation optimization: All CT scans at this facility use at least one of these dose optimization techniques: automated exposure control mA and/or kV adjustment per patient size (includes targeted exams where dose is matched to clinical indication) or iterative reconstruction. CHEST RADIOGRAPH Indication: Assessment for Rales Technique: Single frontal view of the chest was obtained Comparison: XY CHEST PORTABLE on DOS: 11/28/24 FINDINGS: Lines and Tubes: None Lungs: Worsening bibasilar airspace disease. Pleura: No effusion. No pneumothorax. Cardiomediastinal contours: Unremarkable Bones: No acute osseous abnormality. IMPRESSION: Worsening bibasilar airspace disease. Condition at Discharge: Guarded Final Diagnosis/Problems List Acute metabolic encephalopathy, likely due to sepsis Acute hypoxic respiratory failure, likely due to bacterial pneumonia Possible gram+/- bacterial pneumonia Possible viral pneumonia Sepsis, likely due to UTI/pneumonia Complicated UTI Multiple sclerosis flare with atypical features History of stroke History of hypertension Dyslipidemia JJ on possible CKD stage II , baseline creatinine is not available Hypophosphatemia Hypomagnesemia Acute moderate hyponatremia Moderate hypokalemia Osteoporosis Severe malnutrition Discharge Disposition: Hospice - Home Discharge Instruct/Medications Diet: Cardiac 2g Na,low cholest Activity: No Restrictions, As Tolerated Follow Up/Referral: F/U with her PCP in 1-2 weeks Medications: continue current medications Discharge Statement: "Patient was advised to return to the ER or call 911 if any headaches, dizziness, shortness of breath, chest pain, abdominal pain, bleeding, fevers, or worsening of medical condition. Patient was counseled about treatment plan, medications, possible side effects, patientverbalized understanding. All questions were answered to the best of my ability. This discharge took greater then 30 minutes in planning, reviewing documentation, counseling the patient, and discussing with other team members." ASSESSMENT ASSESSMENT Assessment Acute metabolic encephalopathy, likely due to sepsis Acute hypoxic respiratory failure, likely due to bacterial pneumonia Possible gram+/- bacterial pneumonia Possible viral pneumonia Sepsis, likely due to UTI/pneumonia Complicated UTI Multiple sclerosis flare with atypical features History of stroke History of hypertension Dyslipidemia JJ on possible CKD, baseline creatinine is not available Hypophosphatemia Hypomagnesemia Acute moderate hyponatremia Moderate hypokalemia Osteoporosis Severe malnutrition Date of Service: Dec 03, 2024 Billing Provider: JEET MARQUEZ MD Common Visit Codes: 81807-OVE/OBS DISCH DAY >30min EULALIO HAWKINS RESIDENT Dec 03, 2024 14:51 JEET MARQUEZ MD Dec 03, 2024 19:42
--- NOTE | 2024-12-03 16:06 | DVHPN2 ---
Progress Note - Dictate Date Seen: Dec 03, 2024 Has the PT tested + for MRSA If YES, has PT been informed?: No Medical Necessity Reason Pt with a Central, PICC or Fol: No Subjective Ms. Hilliard is a left-handed female with a history of hypertension, depression, stroke. She was admitted to the [facility] on 11/28/2024 with a chief company of altered mental status. I have seen and examined the patient, I have discussed with her nurse and other medical staff, in the room with her. She is further stronger, she talks, but she is only oriented to person, place, she knows year. She follows verbal commands Blood culture, 11/28/2024: Urinalysis, 11/28/2024: WBC: 23, urine leukocyte esterase: 2+ CBC, 11/28/2024: Compensated metabolic acidosis WBC/HB/PLT/MCV, 12/08/2024: 20.6/13.2/348/88.3. 11/29/2024: 16.7/12.1/302/89.3 Sodium, 11/28/2024: 144, 146, 11/29/2024: 150 Potassium, 11/28/2024: 2.3, 11/29/2024: 2.9 Anion gap, 11/29/2024: 17 BUN/CR, 11/28/2024: 102/3.71, 11/29/2024: 102/2.79 Glucose, 11/28/2024: 152 Liver function tests, 11/28/2024: Normal TSH, 11/28/2024: 0.33 EEG, 12/01/2024: Normal Chest x-ray, 11/28/2024: No acute intrathoracic abnormality CT head, 11/28/2024: 1. No acute intracranial hemorrhage 2. No CT findings of territorial ischemia MRI head, 11/29/2024: Limited, incomplete exam. Patient was noncooperative. Significant motion artifact. Mild cerebral atrophy. Moderate white matter disease consistent with given history of multiple sclerosis. Consider follow-up exam when patient is able to cooperate vital signs Vital Sign Date Time Temp Pulse Resp B/P (MAP) Pulse Ox O2 Delivery O2 Flow Rate FiO2 12/03/24 14:46 98.2 94 16 100 12/03/24 13:00 123/70 (87) 12/03/24 09:40 Nasal Cannula* 3 32 Total Intake and Output 12/02/24 12/02/24 12/03/24 14:59 22:59 06:59 Intake Total 825 ml 1210 ml 100 ml Output Total 850 ml 600 ml Balance 825 ml 360 ml -500 ml medications Current Medications Medications Dose Ordered Sig/Jenise Route Start Time Stop Time Status Last Admin Dose Admin Ipratropium [place] 0.5 mg Q4HPRN PRN NEB 11/28/24 20:45 Cancel Enoxaparin Sodium 30 mg DAILY SC 11/29/24 10:00 12/03/24 10:50 30 MG Atorvastatin Calcium 40 mg HS PO 11/30/24 22:00 12/02/24 21:59 40 MG Gabapentin 200 mg BID PO 11/29/24 22:00 12/03/24 10:49 200 MG Pantoprazole Sodium 40 mg DAILY IV 11/30/24 10:00 12/03/24 10:50 40 MG Ipratropium [place] 0.5 mg Q6HWA NEB 12/01/24 18:00 Cancel Levalbuterol HCl 1.25 mg Q6HR NEB 12/01/24 18:00 Cancel Multivitamins 1 tab DAILY PO 12/03/24 10:00 12/03/24 10:50 1 TAB Dextrose 1,000 ml @ 150 mls/hr Q6H40M IV 12/03/24 11:15 12/03/24 17:54 12/03/24 12:17 150 MLS/HR objective General: the patient is well developed and nourished. No acute distress. MENTAL STATUS: Subjective SPEECH, LANGUAGE, HIGHER CORTICAL FUNCTION: no aphasia, mild dysarthria CRANIAL NERVES: Intact visual ordoñez to confrontation. The optic discs were sharp. Pupils are equal, round and reactive. EOMs full and conjugate. No nystagmus. Facial sensation intact in all three divisions bilaterally. Mandibular strength intact. Facial muscles symmetrical and strength intact. SENSATION: Sensation to touch and pinprick is normal. MOTOR: Normal tone in the upper and lower extremity. Normal muscle bulk. No fasciculations. No abnormal movements or posturing. Muscle strength of the major groups in the left extremities is: Upper: 4/5, lower: 2/5. Muscle strength of the major groups in the right extremities is: Upper: 4-5/5, Lowe: 3/5. REFLEXES: Deep tendon reflexes are symmetrical. No pathological reflexes. CEREBELLAR/COORDINATION: Unremarkable GAIT/STATION: deferred. laboratory and microbiology Laboratory Tests 12/02/24 22:30 12/02/24 05:27 Test 12/02/24 22:30 Range/Units Serum Glucose 115 H 74-106 mg/dL Problem List Altered mental status/metabolic encephalopathy, general weakness secondary to: Urinary tract infection Leukocytosis/? Sepsis Metabolic acidosis Hypernatremia/activity dehydration/acute kidney failure Multiple sclerosis with atypical feature Assessment/Plan Monitoring Supportive treatment Telemetry Urine culture Blood culture IV antibiotics DVT prophylaxis/[place] Up to chair Physical therapy Nephrology on case She is likely have a poor prognosis This medical document was created using an electronic medical record system with [employer] dictation system. Although this document has been carefully reviewed, there may still be some phonetic and typographical errors. These areas are purely typographical due to imperfections of the software programs, and do not reflect any compromise in the patient's medical care. Prognosis poor Dietary Evaluation Review Comments: Encourage and Monitor POI intake to meet her needs. consider PO suppplements if POI intake declines below 50% Expected Outcomes/Goals: maintain wt Plan discussed with: Spouse, Other JORGE GNOZALEZ MD Dec 03, 2024 16:06
== END 2024-12-03 17:45 | disposition hospice, home (50) | DRG 871 ==
LOC: EDBD 11:31 → ER 11:31 → OVERFLOW 20:45 → TELE-CENTR 23:10
PROVIDERS: ADMIT Internal Medicine; ATTEND Internal Medicine
DX: A41.59 Other Gram-negative sepsis (principal); E43 Unspecified severe protein-calorie malnutrition; G93.41 Metabolic encephalopathy; J96.01 Acute respiratory failure with hypoxia; J15.69 Pneumonia due to other Gram-negative bacteria; J15.9 Unspecified bacterial pneumonia; J12.9 Viral pneumonia, unspecified; E87.0 Hyperosmolality and hypernatremia; E87.20 Acidosis, unspecified; N17.9 Acute kidney failure, unspecified; N39.0 Urinary tract infection, site not specified; Z68.1 Body mass index [BMI] 19.9 or less, adult; N25.81 Secondary hyperparathyroidism of renal origin; E87.1 Hypo-osmolality and hyponatremia; Z51.5 Encounter for palliative care; Z20.822 Contact with and (suspected) exposure to COVID-19; E86.0 Dehydration; G35 Multiple sclerosis; E83.39 Other disorders of phosphorus metabolism; E87.6 Hypokalemia; E83.42 Hypomagnesemia; E03.9 Hypothyroidism, unspecified; N28.1 Cyst of kidney, acquired; I12.9 Hypertensive chronic kidney disease with stage 1 through stage 4 chronic kidney disease, or unspecified chronic kidney disease; R13.10 Dysphagia, unspecified; M81.0 Age-related osteoporosis without current pathological fracture; E78.5 Hyperlipidemia, unspecified; N18.2 Chronic kidney disease, stage 2 (mild); Z86.73 Personal history of transient ischemic attack (TIA), and cerebral infarction without residual deficits; Z63.4 Disappearance and death of family member; Z82.3 Family history of stroke; Z79.899 Other long term (current) drug therapy
CPT/HCPCS: 36415; 36600; 70450; 70551; 71045; 74176; 76775; 80048; 80053; 80307; 81001; 82306; 82570; 82607; 82805; 82962; 83036; 83605; 83735; 83880; 83935; 83970; 84100; 84133; 84156; 84300; 84439; 84443; 85025; 85048; 85610; 85730; 87040; 87045; 87081; 87086; 87088; 87186; 87426; 87427; 87493; 87804; 92610; 93005; 95819; 96365; 97110; 97116; 97163; 97530; 99291; G0378; J0692; J2470; J2543; J3480